=== PATIENT | female | born 1940 | race Caucasian/White ===

== ENCOUNTER 2019-05-13 08:53 | Outpatient (CLI) | payer OTHER, SELFPAY ==
--- NOTE | 2019-05-13 | ECG_ITS ---
Measurements Intervals [place] Rate: 56 P: 53 KS: 156 QRS: 44 QRSD: 88 T: 69 QT: 397 QTc: 384 Interpretive Statements SINUS BRADYCARDIA BORDERLINE ECG Electronically Signed On 05-13-2019 10:28:57 PROGRAM MANAGER by Amanuel Qureshi D.O.
[2019-05-13 10:38] LABS: Blood Urea Nitrogen 14 mg/dL (7-17); Calcium 9.9 mg/dL (8.4-10.2); Carbon Dioxide 28 mmol/L (22-30); Chloride 100 mmol/L (98-107); Estimated Glomerular Filt Rate > 60; Glucose 74 mg/dL (65-105); Potassium 3.9 mmol/L (3.4-5.0); Sodium 138 mmol/L (137-145)
== END 2019-05-13 08:54 | disposition home or self-care (01) ==
PROVIDERS: PCP Internal Medicine; Visit Provider Surgery Plastic and Reconstructive Surgery
DX: I10 Essential (primary) hypertension (principal); R94.31 Abnormal electrocardiogram [ECG] [EKG]
CPT/HCPCS: 36415; 80048; 93005

== ENCOUNTER 2019-10-23 13:46 | Outpatient (CLI) | payer OTHER, SELFPAY ==
--- NOTE | 2019-10-23 15:00 | NEURO_ITS ---
Patient Number: [id number] Impression: # Complains of right hand pain and numbness. # Mild Carpal Tunnel Syndrome, motor more than sensory. # Needle/EMG exam neurogenic in left APB. # Clinical correlation recommended. Nerve Conduction Studies Anti Sensory Summary Table Stim Site NR Peak (ms) P-T Amp (?V) Site1 Site2 Delta-P (ms) Dist (cm) Omid (m/s) Right Median Anti Sensory (2-3nd Digit) Wrist 4.2 10.5 Wrist 2-3nd Digit 4.2 14.0 33 Wrist 4.8 23.1 Wrist 2-3nd Digit 4.2 14.0 33 Right Radial Anti Sensory (Base 1st Digit) Wrist 2.4 22.2 Wrist Base 1st Digit 2.4 0.0 Right Ulnar Anti Sensory (5th Digit) Wrist 2.9 37.6 Wrist 5th Digit 2.9 14.0 48 Motor Summary Table Stim Site NR Onset (ms) O-P Amp (mV) Site1 Site2 Delta-0 (ms) Dist (cm) Omid (m/s) Right Median Motor (Abd Poll Brev) Wrist 3.3 3.3 Elbow Wrist 4.4 26.0 59 Elbow 7.7 3.2 Right Ulnar Motor (Abd Dig Minimi) Wrist 2.2 5.7 A Elbow Wrist 4.1 25.0 61 A Elbow 6.3 5.0 F Wave Studies NR F-Lat (ms) L-R F-Lat (ms) Right Median (Mrkrs) (Abd Poll Brev) 24.43 Right Ulnar (Mrkrs) (Abd Dig Min) 24.30 EMG Side Muscle Nerve Root Ins Act Fibs Amp Dur Recrt Comment Right 1stDorInt Ulnar C8-T1 Nml Nml Nml Nml Nml Right Ext Indicis Radial (Post Int) C7-8 Nml Nml Nml Nml Nml Right Ext Digitorum Radial (Post Int) C7-8 Nml Nml Nml Nml Nml Right BrachioRad Radial C5-6 Nml Nml Nml Nml Nml Right PronatorTeres Median C6-7 Nml Nml Nml Nml Nml Right Abd Poll Brev Median C8-T1 Nml Nml Decr >12ms Reduced Right ABD Dig Min Ulnar C8-T1 Nml Nml Nml Nml Nml MTDD
== END 2019-10-23 13:47 | disposition home or self-care (01) ==
LOC: ANHNEURO 13:48
PROVIDERS: PCP Internal Medicine; Visit Provider Surgery Plastic and Reconstructive Surgery
DX: R20.0 Anesthesia of skin (principal); G56.01 Carpal tunnel syndrome, right upper limb
CPT/HCPCS: 95886; 95909

== ENCOUNTER 2020-01-13 02:14 | Outpatient (CLI) | payer OTHER, SELFPAY ==
[2020-01-13 18:16] LABS: SARS-CoV-2 RNA PCR Negative
== END 2020-01-13 02:15 | disposition home or self-care (01) ==
LOC: ANHCOVIDDT 02:14
PROVIDERS: PCP Internal Medicine; Visit Provider Surgery Plastic and Reconstructive Surgery
DX: Z01.812 Encounter for preprocedural laboratory examination (principal); Z20.828 Contact with and (suspected) exposure to other viral communicable diseases
CPT/HCPCS: 87635; C9803; U0003

== ENCOUNTER 2020-01-15 00:31 | Day surgery (SDC) | payer OTHER, SELFPAY ==
[2020-01-07 14:39] VITALS: BMI 27.2
[2020-01-15] MEDS: LACTATED RINGERS 1,000 ML 30 ML IV CONT (08:04)
--- NOTE | 2020-01-15 08:06 | WPDANESEPPF ---
Anes - Initial Pre Proc Eval Procedure: Operation Date: 01/15/20 09:00 Proposed Procedures p Right Open Carpal Tunnel Release - Adebayo Mclaughlin MD Date/Time: 01/15/20 08:06 Surgeon: Adebayo Mclaughlin MD Pre Op Diagnosis: Right Carpal Tunnel Syndrome Patient Data Age: 79 Gender: F Height: 5 ft 1 in Weight: 65.4 kg Allergies Allergy/AdvReac Type Severity Reaction Status Date / Time Sulfa (Sulfonamide Allergy Severe HIVE, Verified 01/07/20 14:14 Antibiotics) THROAT TIGHTENING rosuvastatin [From Crestor] AdvReac Intermediate Joint Pain Verified 01/07/20 14:57 Home Medications Medication Instructions Recorded Confirmed Type alendronate 70 mg tablet 70 mg PO WEEKLY 03/31/19 01/07/20 History levothyroxine 50 mcg tablet See Rx Instructions .ROUTE 09/29/19 01/07/20 Rx .COMPLEX #45 tablet levothyroxine 75 mcg tablet 75 mcg PO .COMPLEX #45 tablet 09/29/19 01/07/20 Rx hydrocodone 5 mg-acetaminophen 325 1 tablet PO Q6H PRN #15 tablet 01/05/20 01/07/20 Rx mg tablet ondansetron HCl 4 mg tablet 4 mg PO Q6H PRN #30 tablet 01/05/20 01/07/20 Rx ascorbic acid (vitamin C) [Vitamin 500 mg PO DAILY 01/07/20 01/07/20 History C] carvedilol 12.5 mg PO BID 01/07/20 01/07/20 History cholecalciferol (vitamin D3) 125 mcg PO DAILY 01/07/20 01/07/20 History [Vitamin D3] cyanocobalamin (vitamin B-12) 2,500 mcg SUBLINGUAL DAILY 01/07/20 01/07/20 History [Vitamin B-12] fluticasone propionate 2 spray NASAL HS 01/07/20 01/07/20 History garlic 1,000 mg PO DAILY 01/07/20 01/07/20 History uhnayodg-sdv-cykd-FA-lutein 1 tablet PO DAILY 01/07/20 01/07/20 History [Multivitamin Women 50 Plus] omeprazole 20 mg PO QAM 01/07/20 01/07/20 History simvastatin 20 mg PO HS 01/07/20 01/07/20 History vitamin E 400 unit PO DAILY 01/07/20 01/07/20 History Patient hx anesthesia problems: none Family hx anesthesia problems: none PMFSH Surgical History Surgical History History of appendectomy 1960 History of hysterectomy 1973 Hx of removal of ovary 1960 Family History Family History Sibling Family history of malignant neoplasm of breast in first degree relative Family history of lupus erythematosus Family history of gastrointestinal disorder Mother Family history of Alzheimer's disease Patient's mother is Father Patient's father is Other Diabetes mellitus Social History Social History (Updated 01/15/20 @ 08:06 by Jasper Schuler MD) Smoking packs per day: 1 Smoking cigarettes per day: 20.0 Years smoked: 2 Smoking pack-years: 2.00 Smoking status: Former smoker Smoking end date: 04/09/1967 Alcohol intake: never Substance use: never Living arrangements: with family Anes - Eval Final PreProcedure Day of Procedure 01/15/20 08:06 Patient weight: overweight Heart: regular rate and rhythm Lungs: clear to auscultation Airway: Mallampati scale class II Neurological: alert and oriented Last oral intake: >/= 8 hours ASA classification: II Emergent: no Anesthetic plan: proceed Anesthesia type and monitoring: general GIVS and standard monitoring Informed Consent: The patient's anesthetic plan and its attendant risks and benefits were discussed with the patient/family/POA. Questions were solicited and answers provided to the satisfaction of the patient/family/POA.
[2020-01-15 08:18] VITALS: BP 166/74; PULSE 63; RESP 20; TEMP 36.9; O2SAT 99
--- NOTE | 2020-01-15 08:57 | PM.PROC ---
Procedure Note - Detailed Date of procedure: 01/15/20 Pre-op diagnosis: Right Carpal Tunnel Syndrome Post-op diagnosis: same Procedure performed: Right open carpal tunnel release Description of procedure: Patient was marked in the preoperative holding area with their verification. Taken to the operating room placed supine on operating room table. Anesthesia provided by anesthesiology and prepped and draped in standard sterile fashion. Surgical time-out was taken. 1% lidocaine and 0.25% Marcaine with epinephrine was used anesthetize locally. Esmarch was used to exsanguinate the arm and tourniquet inflated to 250 mmHg. Fifteen blade used to make an incision just ulnar to the palmaris longus tendon location. Dissection was continued down until the transverse carpal ligament was identified and this was completely released under direct visualization with no evidence of neurovascular or tendon injury. I closed with horizontal mattress 4-0 nylon. Xeroform fluffs and a lightly applied Saravanan were used for final dressing. Anesthesia: MAC Surgeon: Adebayo Mclaughlin MD Estimated blood loss (mL): 1 Drains: No Packing: No Pathology: none sent Complications: No immediate complications Condition: stable Disposition: PACU Findings: No evidence of neurovascular or tendon injury. Transverse carpal ligament completely released under direct visualization.
--- NOTE | 2020-01-15 09:05 | WPDHPUPDATE1 ---
History and Physical Update Update Date/Time: 01/15/20 09:05 History and Physical has been reviewed, including an updated exam of the patient. There are NO changes in the patient's condition. Risks, benefits, and alternatives have been discussed and questions answered. Patient agrees to proceed with procedure.
[2020-01-15] MEDS: ceFAZolin 2 GM/D5W 50 ML 2 GM/50 ML BAG IVPB (09:09)
[2020-01-15] MEDS: LIDO 1%/EPINEPHRINE 1:100,000 20 ML VIAL 10 ML INFILTRATE (09:25)
[2020-01-15 09:45] VITALS: BP 125/68; PULSE 66; RESP 20; O2SAT 93
[2020-01-15 10:05] VITALS: BP 124/74; PULSE 56; RESP 20
== END 2020-01-15 10:44 | disposition home or self-care (01) ==
PROVIDERS: PCP Internal Medicine; Visit Provider Surgery Plastic and Reconstructive Surgery
PROC: (CPT 64721; principal; 2020-01-15 09:00)
DX: G56.01 Carpal tunnel syndrome, right upper limb (principal); Z87.891 Personal history of nicotine dependence
CPT/HCPCS: 64721; J0690; J1100; J2405; J2704; J3010; J7120

== ENCOUNTER → 2020-04-05 11:08 | Outpatient (CLI) | payer OTHER, SELFPAY ==
--- NOTE | ~2020-04-05 | DEXA_ITS ---
Bone Density Report Name: Breanna Franco Age: 79 Sex: Female Ethnicity: White Date of : 1940 Indication: osteopenia; monitoring treatment; height loss; prior fracture; hysterectomy; postmenopausal Referring Provider: SUGAR HOLM D.O. Study: Bone densitometry was performed. Exam Date: April 05, 2020 Accession number: [id number] Bone Density: Region BMD T-score Z-score Classification AP Spine (L3, L4) 1.122 0.2 2.9 Normal Femoral Neck (Left) 0.751 -0.9 1.3 Normal Total Hip (Left) 0.913 -0.2 1.7 Normal Femoral Neck (Right) 0.661 -1.7 0.5 Osteopenia Total Hip (Right) 0.845 -0.8 1.1 Normal Total Hip Mean 0.879 -0.5 1.4 Normal World Health Organization criteria for BMD impression classify patients as: Normal (T-score at or above -1.0), Osteopenia (T-score between -1.0 and -2.5), or Osteoporosis (T-score at or below -2.5). 10-year Fracture Risk: FRAX not reported because: Treated for osteoporosis Previous Exams: Region Exam Age BMD T-score BMD Change BMD Change Date g/cm2 vs Baseline vs Previous AP Spine(L3, L4) 04/05/2020 79 1.122 0.2 0.077* 0.065* 01/17/2018 77 1.057 -0.4 0.012 0.012 02/22/2015 74 1.045 -0.5 Total Hip(Left) 04/05/2020 79 0.913 -0.2 0.026 0.035* 01/17/2018 77 0.878 -0.5 -0.009 -0.009 02/22/2015 74 0.886 -0.5 Total Hip(Right) 04/05/2020 79 0.845 -0.8 0.000 0.036* 01/17/2018 77 0.809 -1.1 -0.036* -0.036* 02/22/2015 74 0.845 -0.8 *Denotes significance at 95% confidence level, LSC for AP Spine = 0.022 g/cm2, LSC for Total Hip = 0.027 g/cm2 Clinical Information Provided by Patient: Has had a low trauma fracture Is being treated for osteoporosis Has used the following medications: Fosamax (i.e. alendronate), Vitamin D, Calcium, MTV Has the following medical conditions: Hysterectomy, thyroid condition/hypo? Patient maximum height was 61 Menopause Age: 32 No regular weight bearing exercise Does not regularly consume dairy products Drinks caffeinated beverages Onset of menses at age 14 Number of children 3 Impression: The patient has low bone mass, based on the Right Femoral Neck T-score. The patient has risk factors, including: previous fracture. No significant bone loss was observed. Discussion: PATIENT UNDER TREATMENT WITH NO SIGNIFICANT BMD LOSS SINCE LAST EXAM. In an untre
--- NOTE | ~2020-04-05 | MM_ITS ---
EXAMINATION: MM screening lucia BI w erica HISTORY: Screening TECHNIQUE: Craniocaudal and mediolateral oblique 3-D tomosynthesis images were obtained and synthetic 2-D images were generated. CAD analysis was submitted and interpreted. COMPARISON: Comparison to multiple prior studies sequentially, with oldest reviewed study dated 02/07. BREAST PARENCHYMAL COMPOSITION: There are scattered areas of fibroglandular density. FINDINGS: There is no evidence of suspicious mass, calcification, or architectural distortion to sugg est malignancy in either breast. There has been no suspicious interval change. IMPRESSION: 1. No mammographic evidence of malignancy. 2. Recommend routine screening mammography in one year. BI-RADS Category 1: Negative Reviewed, dictated and finalized at location A. NG TACKER
== END ==
PROVIDERS: PCP Internal Medicine; Visit Provider Internal Medicine
DX: Z12.31 Encounter for screening mammogram for malignant neoplasm of breast (principal); Z78.0 Asymptomatic menopausal state; M16.11 Unilateral primary osteoarthritis, right hip
CPT/HCPCS: 77063; 77067; 77080

== ENCOUNTER 2021-02-08 00:52 | Observation (INO) | payer OTHER, SELFPAY ==
[2021-02-08] VITALS (20 sets, daily range): BP systolic 119–172; BP diastolic 58–94; PULSE 57–89; RESP 13–21; TEMP 36.1–37.2; O2SAT 94–100; BMI 24.4
--- NOTE | ~2021-02-08 | CT_ITS ---
EXAMINATION: CT abdomen pelvis w con INDICATION: Right upper quadrant pain TECHNIQUE: Computed tomographic images of the abdomen and pelvis were obtained after the administrati on of 100 cc of Omnipaque 350 intravenous contrast. The dose-length product (DLP) was 577.60 mGy-cm. Automated exposure control and iterative reconstruction technique were employed. COMPARISON: 02/19/2017 FINDINGS: Minimal dependent atelectasis is present in the lung bases. The heart size is normal. There is a 10 mm cyst in the left hepatic lobe. The spleen, pancreas, and adrenal glands are normal. The g allbladder is distended. There is mild wall thickening of the gallbladder. There are questionable sma ll filling defects in the distal common bile duct. There is no intrahepatic or extrahepatic biliary d ilatation. Cysts of the kidneys measure up to 1.4 cm on the left. No pathologically enlarged abdomina l or pelvic lymph nodes are identified. There is no free intraperitoneal gas or evidence of bowel obs truction. Colonic diverticulosis is present without evidence of diverticulitis. There is severe lumba r spondylosis. IMPRESSION: 1. CT findings consistent with acute cholecystitis. 2. Possible choledocholithiasis. Reviewed, dictated and finalized at location B.
--- NOTE | ~2021-02-08 | US_ITS ---
EXAMINATION: US abdomen limited DATE: 02/08/2021 07:54 INDICATION: Right upper quadrant pain, cholecystitis TECHNIQUE: Multiple grayscale and Doppler ultrasound images of the abdomen were obtained. COMPARISON: CT from today FINDINGS: Bowel gas obscures visualization of the pancreas. The visualized portions of the pancreas a re unremarkable. The liver is normal with normal echogenicity and echotexture. No surface nodularity. Normal hepatopetal flow in the main portal vein. The gallbladder is distended. There is thickening o f the gallbladder wall. A phrygian cap is noted in the gallbladder. There is an echogenic focus of th e gallbladder which could reflect a mobile stone or polyp The normal common bile duct measures 4 mm. There was no sonographic Pereira sign although sensitivity is limited by pain medication. IMPRESSION: 1. Gallbladder distention with gallbladder wall thickening and stone versus polyp in the gallbladder. Findings are suggestive of cholecystitis. Reviewed, dictated and finalized at location B. IMPRESSION: 1. Gallbladder distention with gallbladder wall thickening and stone versus lexis yp in the gallbladder. Findings are suggestive of cholecystitis.
--- NOTE | ~2021-02-08 | XR_ITS ---
EXAMINATION: XR chest 2V DATE: 02/08/2021 01:19 INDICATION: Chest pain TECHNIQUE: PA and lateral views of the chest were obtained. COMPARISON: Chest radiograph dated 06/22/2015 FINDINGS: The lungs remain clear with no focal airspace opacities, pulmonary edema, pleural effusion or pneumot horax. The cardiomediastinal silhouette is normal. IMPRESSION: 1. No acute cardiopulmonary disease. Reviewed, dictated and finalized at location A.
--- NOTE | 2021-02-08 01:06 | ECG_ITS ---
Measurements Intervals [place] Rate: 64 P: 29 MT: 170 QRS: 6 QRSD: 86 T: 52 QT: 376 QTc: 390 Interpretive Statements SINUS RHYTHM BORDERLINE ST-T WAVE ABNORMALITY- ANTEROLAT/HIGH LAT LEADS BASELINE ARTIFACT- AVR, AVL, AVF, V3, V5 BORDERLINE ECG Electronically Signed On 02-08-2021 6:16:49 CDT by Amanuel Qureshi D.O.
[2021-02-08 01:16] LABS: Basophils Percent Auto 0.5 % (0.2-1.2); Eosinophils Absolute Auto 0.2 K/mm3 (0-0.3); Eosinophils Percent Auto 1.9 % (0-4.4); Hematocrit 39.4 % (37.0-47.0); Hemoglobin 13.1 g/dL (12.0-15.0); Immature Granulocyte Absolute 0.03 K/mm3 (0.00-0.031); Immature Granulocyte Percent A 0.4 % (0-0.5); Lymphocytes Absolute Auto 1.84 K/mm3 (0.9-3.2); Lymphocytes Percent Auto 21.7 % (18.3-44.2); Mean Corpuscular HGB Conc 33.2 g/dl (32-36); Mean Corpuscular Hemoglobin 31.2 pg (26-34); Mean Corpuscular Volume 93.8 fl (80-100); Mean Platelet Volume 9.8 fl (7.4-10.4); Monocytes Absolute Auto 0.8 K/mm3 (0.1-0.6); Monocytes Percent Auto 9.2 % (2.6-8.5); Neutrophils Absolute Auto 5.6 K/mm3 (1.3-6.7); Neutrophils Percent Auto 66.3 % (45.5-73.1); Platelet Count Result 312 k/mm3 (150-375); Red Cell Distribution Width 12.6 % (11.5-14.5); White Blood Count 8.5 K/mm3 (4.5-10.0)
[2021-02-08 01:25] LABS: INR 0.9; Prothrombin Time 12.2 Seconds (11.1-14.7)
[2021-02-08 01:26] LABS: Partial Thromboplastin Time 30.5 SECONDS (22.3-36.8)
[2021-02-08 01:28] LABS: Anion Gap 9 mmol/L (8-16); Blood Urea Nitrogen 13 mg/dL (7-17); Calcium 10.4 mg/dL (8.4-10.2); Carbon Dioxide 27 mmol/L (22-30); Chloride 103 mmol/L (98-107); Estimated CRCL calculation 41 ml/min; Estimated Glomerular Filt Rate > 60; Glucose 118 mg/dL (65-110); Potassium 3.8 mmol/L (3.4-5.0); Sodium 139 mmol/L (137-145)
[2021-02-08 01:40] LABS: Troponin I < 0.012 ng/mL (0.000-0.034)
[2021-02-08] MEDS: ASPIRIN 81 MG CHEWABLE TABLET 324 MG PO (01:58)
--- NOTE | 2021-02-08 02:43 | ED.CHESTPAIN ---
HPI - Chest Pain General Chief Complaint: Chest Pain Stated Complaint: chest pain Time Seen by Provider: 02/08/21 01:11 Source: patient Mode of arrival: ambulatory Limitations: no limitations History of Present Illness HPI narrative: 80-year-old female with history of hypertension, high cholesterol and hypothyroidism arrives complaining of chest pain constant for 6 hours. Chest pain is located under the right rib cage radiating to the mid epigastrium and mid sternum. Worse with a deep breath, worse with laying flat. No fever, does have nausea. Patient states she has had pain like this before but it went away but this time it has not. Patient states she still does have her gallbladder no hematemesis, no lower abdominal pain, no diarrhea, no constipation. No recent changes in medications. Patient is not on blood thinners and has no history of CAD. Related Data Home Medications Medication Instructions Recorded Confirmed Multivitamin Women 50 Plus 1 tablet PO DAILY 01/07/20 02/08/21 ascorbic acid (vitamin C) [Vitamin 500 mg PO DAILY 01/07/20 02/08/21 C] cholecalciferol (vitamin D3) 125 mcg PO DAILY 01/07/20 02/08/21 [Vitamin D3] cyanocobalamin (vitamin B-12) 2,500 mcg SUBLINGUAL DAILY 01/07/20 02/08/21 [Vitamin B-12] vitamin E 400 unit PO DAILY 01/07/20 02/08/21 zinc 50 mg tablet 50 mg PO DAILY 05/17/20 02/08/21 carvedilol 12.5 mg PO BID 02/08/21 02/08/21 levothyroxine 50 mcg PO DAILY 02/08/21 02/08/21 levothyroxine 75 mcg PO DAILY 02/08/21 02/08/21 simvastatin 20 mg PO DAILY 02/08/21 02/08/21 Allergies Allergy/AdvReac Type Severity Reaction Status Date / Time Sulfa (Sulfonamide Allergy Severe HIVE, Verified 02/08/21 06:12 Antibiotics) THROAT TIGHTENING rosuvastatin [From Crestor] AdvReac Intermediate Joint Pain Verified 02/08/21 06:12 Review of Systems Review of Systems: CONSTITUTIONAL: no fever, no weight loss, no confusion EYES: no vision changes, no eye pain ENT: no rhinorrhea, no sore throat, no difficulty swallowing CARDIOVASCULAR: positive for chest pain, no leg edema, no palpitations RESPIRATORY: no cough, no shortness of breath, no hemoptysis GASTROINTESTINAL: positive for abdominal pain, positive for nausea, positive for vomiting, no diarrhea GENITOURINARY: no flank pain, no dysuria, no hematuria SKIN: no rash, no jaundice MUSCULOSKELETAL: no back pain, no trauma. NEUROLOGIC: No headache, no dizziness, no focal weakness PSYCHIATRIC: No hallucinations, no suicidal ideation [facility] Past Medical History Medical History (Updated 02/09/21 @ 13:06 by Pavel Velarde DO) Hypercholesteremia Hypertension Surgical History Surgical History History of appendectomy 1960 History of hysterectomy 1972 Hx of removal of ovary 1960 Family History Family History Sibling Family history of malignant neoplasm of breast in first degree relative Family history of lupus erythematosus Family history of gastrointestinal disorder Hypertension Mother Family history of Alzheimer's disease Patient's mother is Hypertension Father Patient's father is Alcoholism Other Diabetes mellitus Social History Social History Smoking packs per day: 1 Smoking cigarettes per day: 20.0 Years smoked: 2 Smoking pack-years: 2.00 Smoking status: Former smoker Tobacco type: cigarettes Second hand tobacco smoke exposure: No Alcohol intake: never Substance use: never Substance use type: does not use Spiritual care concerns: No Exam Narrative: General: alert, afebrile, answering all questions appropriately Head: normocephalic, atraumatic Eyes: EOMI bilaterally, anicteric, no injection ENT: moist mucous membranes, oropharynx patent, no rhinorrhea Neck: supple, trachea midli
--- NOTE | 2021-02-08 03:04 | PC.NURSE ---
Called lab to add on Lip
[2021-02-08 03:12] LABS: Lipase 241 U/L (23-300)
[2021-02-08] MEDS: ONDANSETRON INJ 4 MG/2 ML VIAL IV PUSH ×2 (03:20→12:06)
[2021-02-08] MEDS: KETOROLAC 15 MG/ML VIAL (*BKC) IV PUSH (03:22)
[2021-02-08 04:24] LABS: Alanine Aminotransferase 18 U/L (4-35); Albumin Level 4.8 g/dL (3.5-5.1); Alkaline Phosphatase 81 U/L (38-126); Aspartate Amino Transferase 32 U/L (14-36); Bilirubin,Total 0.6 mg/dL (0.2-1.3)
[2021-02-08] MEDS: AMPICILLIN SULB 3 GM/NS 100 ML 3 GM/100 ML VIAL IVPB ×4 (05:11→22:50)
--- NOTE | 2021-02-08 05:55 | ADMGEN ---
This patient, Breanna Franco, was admitted to Medical Room 343-01. Patient/family oriented to hospital policies and general routines including ID bracelet, bed and alarms, visiting hours, pain management, procedures, bathroom and other care routines, personal items, smoking policy, room service/diet, and visiting hours. Information on how to activate the Rapid Response Team has been discussed. Patient/Family are encouraged to report perceived risks to care and to ask questions if they do not understand what they are told or what they should do.
--- NOTE | 2021-02-08 11:48 | PM.IMHP ---
H&P: HPI History of Present Illness Date/Time: 02/08/21 11:48 Chief Complaint: Epigastric pain Narrative: this is a 80-year-old woman who presented to the emergency department this morning with epigastric pain. She states that she began having pain yesterday evening. She ate salmon and a broccoli salad for lunch. She has never had symptoms like this in the past. She does get occasional acid reflux, but the symptoms appear to be different. She denies any fevers or chills. She denies any vomiting but she has had some nausea. She denies any change in bowel habits. Review of Systems Review of Systems: All systems reviewed & are unremarkable except as noted in HPI and below Constitutional: Constitutional: Denies chills and Denies fever(s) Eyes: Eyes: Denies change in vision ENT: Denies hearing loss, Denies neck pain and Denies sore throat Cardiovascular: Cardiovascular: Denies chest pain and Denies dyspnea Respiratory: Respiratory: Denies cough, Denies dyspnea and Denies wheezing Gastrointestinal: Gastrointestinal: Reports as per HPI Genitourinary: Genitourinary: Denies hematuria and Denies dysuria Musculoskeletal: Musculoskeletal: Denies arthralgias, Denies joint swelling and Denies neck pain Allergic/Immunologic: Allergic/Immunologic: Denies wheezing [facility] Past Medical History Medical History (Updated 02/08/21 @ 11:51 by Pavel Velarde DO) Hypercholesteremia Hypertension Surgical History Surgical History History of appendectomy 1960 History of hysterectomy 1972 Hx of removal of ovary 1960 Family History Family History Sibling Family history of malignant neoplasm of breast in first degree relative Family history of lupus erythematosus Family history of gastrointestinal disorder Hypertension Mother Family history of Alzheimer's disease Patient's mother is Hypertension Father Patient's father is Alcoholism Other Diabetes mellitus Social History Social History Smoking packs per day: 1 Smoking cigarettes per day: 20.0 Years smoked: 2 Smoking pack-years: 2.00 Smoking status: Former smoker Tobacco type: cigarettes Second hand tobacco smoke exposure: No Alcohol intake: never Substance use: never Substance use type: does not use Living arrangements: with family Occupation/Education: retired Spiritual care concerns: No Meds Home Medications and Allergies Home Medications Medication Instructions Recorded Confirmed Type Multivitamin Women 50 Plus 1 tablet PO DAILY 01/07/20 02/08/21 History ascorbic acid (vitamin C) [Vitamin 500 mg PO DAILY 01/07/20 02/08/21 History C] cholecalciferol (vitamin D3) 125 mcg PO DAILY 01/07/20 02/08/21 History [Vitamin D3] cyanocobalamin (vitamin B-12) 2,500 mcg SUBLINGUAL DAILY 01/07/20 02/08/21 History [Vitamin B-12] vitamin E 400 unit PO DAILY 01/07/20 02/08/21 History zinc 50 mg tablet 50 mg PO DAILY 05/17/20 02/08/21 History omega-3 fatty acids 1,000 mg 1,000 mg PO DAILY #90 cap 06/28/20 02/08/21 Rx capsule omeprazole 20 mg capsule,delayed 20 mg PO BID #180 cap 01/04/21 02/08/21 Rx release fluticasone propionate 50 2 spray NASAL HS PRN #16 g 01/07/21 02/08/21 Rx mcg/actuation nasal spray,suspension carvedilol 12.5 mg PO BID 02/08/21 02/08/21 History levothyroxine 50 mcg PO DAILY 02/08/21 02/08/21 History levothyroxine 75 mcg PO DAILY 02/08/21 02/08/21 History simvastatin 20 mg PO DAILY 02/08/21 02/08/21 History Allergies Allergy/AdvReac Type Severity Reaction Status Date / Time Sulfa (Sulfonamide Allergy Severe HIVE, Verified 02/08/21 06:12 Antibiotics) THROAT TIGHTENING rosuvastatin [From Crestor] AdvReac Intermediate Joint Pain Verified 02/08/21 06:12 Vital Si
[2021-02-08] MEDS: LACTATED RINGERS 1,000 ML 125 ML IV CONT (12:06)
--- NOTE | 2021-02-08 14:53 | PC.NURSE ---
Pt to OR per stretcher. Report given to PIETRO Peraza.
--- NOTE | 2021-02-08 17:02 | WPDANESEPPF ---
Anes - Initial Pre Proc Eval Procedure: Operation Date: 02/08/21 16:15 Proposed Procedures p Laparoscopic Cholecystectomy,Possible Open - Pavel Velarde DO Date/Time: 02/08/21 17:02 Surgeon: Pavel Velarde DO Pre Op Diagnosis: Cholecystitis Patient Data Age: 80 Gender: F Height: 1.65 m Weight: 66.6 kg Last Vital Signs Temp 36.6 C 02/08/21 15:26 Pulse 67 02/08/21 15:26 Resp 17 02/08/21 15:26 BP 137/70 02/08/21 15:26 Pulse Ox 99 02/08/21 15:26 Allergies Allergy/AdvReac Type Severity Reaction Status Date / Time Sulfa (Sulfonamide Allergy Severe HIVE, Verified 02/08/21 06:12 Antibiotics) THROAT TIGHTENING rosuvastatin [From Crestor] AdvReac Intermediate Joint Pain Verified 02/08/21 06:12 Home Medications Medication Instructions Recorded Confirmed Type Multivitamin Women 50 Plus 1 tablet PO DAILY 01/07/20 02/08/21 History ascorbic acid (vitamin C) [Vitamin 500 mg PO DAILY 01/07/20 02/08/21 History C] cholecalciferol (vitamin D3) 125 mcg PO DAILY 01/07/20 02/08/21 History [Vitamin D3] cyanocobalamin (vitamin B-12) 2,500 mcg SUBLINGUAL DAILY 01/07/20 02/08/21 History [Vitamin B-12] vitamin E 400 unit PO DAILY 01/07/20 02/08/21 History zinc 50 mg tablet 50 mg PO DAILY 05/17/20 02/08/21 History omega-3 fatty acids 1,000 mg 1,000 mg PO DAILY #90 cap 06/28/20 02/08/21 Rx capsule omeprazole 20 mg capsule,delayed 20 mg PO BID #180 cap 01/04/21 02/08/21 Rx release fluticasone propionate 50 2 spray NASAL HS PRN #16 g 01/07/21 02/08/21 Rx mcg/actuation nasal spray,suspension carvedilol 12.5 mg PO BID 02/08/21 02/08/21 History levothyroxine 50 mcg PO DAILY 02/08/21 02/08/21 History levothyroxine 75 mcg PO DAILY 02/08/21 02/08/21 History simvastatin 20 mg PO DAILY 02/08/21 02/08/21 History Laboratory Tests 02/08/21 02/08/21 02/08/21 01:09 01:09 01:09 WBC 8.5 K/mm3 K/mm3 (4.5-10.0) RBC 4.20 M/mm3 M/mm3 (4.2-5.4) Hgb 13.1 g/dL g/dL (12.0-15.0) Hct 39.4 % % (37.0-47.0) MCV 93.8 fl fl (80-100) MCH 31.2 pg pg (26-34) MCHC 33.2 g/dl g/dl (32-36) RDW 12.6 % % (11.5-14.5) Plt Count 312 k/mm3 k/mm3 (150-375) MPV 9.8 fl fl (7.4-10.4) Immature Gran % (Auto) 0.4 % % (0-0.5) Neut % (Auto) 66.3 % % (45.5-73.1) Lymph % (Auto) 21.7 % % (18.3-44.2) [place] % (Auto) 9.2 % H % (2.6-8.5) Eos % (Auto) 1.9 % % (0-4.4) Baso % (Auto) 0.5 % % (0.2-1.2) Lymph # (Auto) 1.84 K/mm3 K/mm3 (0.9-3.2) [place] # (Auto) 0.8 K/mm3 H K/mm3 (0.1-0.6) Eos # (Auto) 0.2 K/mm3 K/mm3 (0-0.3) Baso # (Auto) 0.0 K/mm3 K/mm3 (0.0-0.1) Abs Immat Gran (auto) 0.03 K/mm3 K/mm3 (0.00-0.031) Absolute Neuts (auto) 5.6 K/mm3 K/mm3 (1.3-6.7) Absolute Nucleated RBC 0.0 K/mm3 K/mm3 (0.0-0.012) Nucleated RBC % 0.0 % % (0.0-0.2) PT 12.2 Seconds Seconds (11.1-14.7) INR 0.9 APTT 30.5 SECONDS SECONDS (22.3-36.8) Sodium 139 mmol/L mmol/L (137-145) Potassium 3.8 mmol/L mmol/L (3.4-5.0) Chloride 103 mmol/L mmol/L (98-107) Carbon Dioxide 27 mmol/L mmol/L (22-30) Anion Gap 9 mmol/L mmol/L (8-16) BUN 13 mg/dL mg/dL (7-17) Creatinine 0.90 mg/dL mg/dL (0.7-1.0) Estim Creat Clear Calc 41 ml/min ml/min Estimated GFR > 60 (59 - ) Glucose 118 mg/dL H mg/dL (65-110) Calcium 10.4 mg/dL H mg/dL (8.4-10.2) Total Bilirubin Direct Bilirubin AST ALT Alkaline Phosphatase Troponin I < 0.012 ng/mL ng/mL (0.000-0.034) Total Protein Albumin Lipase Blood Type Antibody Scree
--- NOTE | 2021-02-08 17:17 | WPDHPUPDATE1 ---
History and Physical Update Update Date/Time: 02/08/21 17:17 History and Physical has been reviewed, including an updated exam of the patient. There are NO changes in the patient's condition. Risks, benefits, and alternatives have been discussed and questions answered. Patient agrees to proceed with procedure.
--- NOTE | 2021-02-08 18:15 | W.PM.PROC2 ---
Procedure Note - Detailed Date of Procedure 02/08/21 Pre-op Diagnosis Cholecystitis Post-op Diagnosis same Procedure Performed Laparoscopic cholecystectomy Surgeon Pavel Velarde, DO Anesthesia general and local (0.5% bupivacaine) Indications This is a 80-year-old woman who presented to the emergency department this morning with epigastric and right upper quadrant pain. She began experiencing pain yesterday and this has been constant ever since. A CT in the emergency department showed evidence of gallbladder wall thickening and gallbladder distention. Her white blood count was normal on liver enzymes were normal. Discussions were made with the patient about treatment options and decision was made to proceed with laparoscopic cholecystectomy, possible open. Findings Laparoscopic cholecystectomy was performed. There were a few pericholecystic adhesions around the body of the gallbladder and the gallbladder wall appeared chronically thickened. There was no evidence of gangrene and the cystic duct appeared normal in size. The gallbladder was removed and sent to the lab for pathology. Description of Procedure Procedure as well as risks, benefits, and alternatives were discussed with patient. Written consent was obtained and placed in chart prior to procedure. The patient was brought back to surgical suite. Patient was placed in supine position on operating table. Time-out was done to confirm patient and procedure. Patient was then intubated by the anesthesia department. Abdomen was prepped and draped in sterile fashion using chlorhexidine prep. 0.5% bupivacaine with epinephrine was infiltrated at each site of incision. An 11 millimeter vertical incision was made at the inferior portion of the umbilicus using a 15 blade scalpel. Blunt dissection was carried down to the linea alba. The linea alba was then incised using a 15 blade scalpel. The peritoneum was then bluntly entered. An 11 millimeter trocar was inserted and carbon dioxide insufflation was used to create a pneumoperitoneum. The camera was inserted and the abdomen was inspected. The patient was placed in reverse Trendelenberg position and rotated slightly to the left. A 5 millimeter incision was made in the epigastric region, and a 5 millimeter trocar was inserted under direct visualization. Two 5 millimeter incisions were made in the right upper quadrant, and two 5 millimeter trocars were inserted under direct visualization. The gallbladder was identified and grasped at the fundus and retracted superiorly. It was then grasped at the infundibulum retracted laterally. Careful dissection around the neck of the gallbladder was performed using blunt dissection with a [place] grasper and hook electrocautery. The cystic duct was identified, and a window was created behind it. The cystic artery was also identified and a window was created behind it. The critical view of safety was identified, visualizing the cystic duct running directly into the neck of the gallbladder, and the cystic artery running directly into the wall of the gallbladder. A 5 millimeter clip meat processing center manager was then used to place 2 clips proximally and 1 clip distally on both the cystic duct and cystic artery. They were then both transected using endoscopic scissors. Once safely away from the arianna hepatitis, the gallbladder was dissected free from the liver bed using hook electrocautery. Hemostasis was achieved along the way. The gallbladder was removed completely and then removed through the umbilical port. The liver bed was then inspected. Hemostasis appeared adequate, and our clips appeared secure. The area was gently irrigated with sterile saline. No other abnormalities were seen. The patient was flattened out in bed, and 1 final inspection was made around the abdominal cavity. The ports were then removed under direct visualization, the camera was removed, and the pneumoperitoneum was released. The fascia of the umbili
[2021-02-08] MEDS: LACTATED RINGERS 1,000 ML 30 ML IV CONT (18:16)
--- NOTE | 2021-02-08 19:45 | PC.NURSE ---
Patient returned to room from PACU via stretcher.
[2021-02-08] MEDS: carvediloL 12.5 MG TABLET PO (20:13)
[2021-02-08] MEDS: LACTATED RINGERS 1,000 ML 100 ML IV CONT (20:14)
[2021-02-09] MEDS: HYDROcodone/acetaminophen (*CRX) 5-325 MG TABLET 1 TAB PO (01:06)
[2021-02-09 01:27] VITALS: BP 112/67; PULSE 88; RESP 16; TEMP 37.1; O2SAT 94
[2021-02-09 05:14] LABS: Hematocrit 32.1 % (37.0-47.0); Hemoglobin 10.5 g/dL (12.0-15.0); Mean Corpuscular HGB Conc 32.7 g/dl (32-36); Mean Corpuscular Hemoglobin 31.3 pg (26-34); Mean Corpuscular Volume 95.8 fl (80-100); Mean Platelet Volume 9.6 fl (7.4-10.4); Platelet Count Result 230 k/mm3 (150-375); Red Blood Count 3.35 M/mm3 (4.2-5.4); Red Cell Distribution Width 12.6 % (11.5-14.5); White Blood Count 6.4 K/mm3 (4.5-10.0)
[2021-02-09] MEDS: LEVOTHYROXINE SODIUM 50 MCG TABLET PO (05:23)
[2021-02-09] MEDS: AMPICILLIN SULB 3 GM/NS 100 ML 3 GM/100 ML VIAL IVPB ×2 (05:23→11:24)
[2021-02-09 05:27] VITALS: BP 116/63; PULSE 78; RESP 18; TEMP 36.6; O2SAT 96
[2021-02-09] MEDS: HYDROcodone/acetaminophen (*CRX) 7.5-325 MG TABLET 1 TAB PO (05:28)
[2021-02-09 05:31] LABS: Anion Gap 7 mmol/L (8-16); Blood Urea Nitrogen 11 mg/dL (7-17); Calcium 8.3 mg/dL (8.4-10.2); Carbon Dioxide 23 mmol/L (22-30); Chloride 105 mmol/L (98-107); Estimated CRCL calculation 45 ml/min; Estimated Glomerular Filt Rate > 60; Glucose 76 mg/dL (65-110); Potassium 3.9 mmol/L (3.4-5.0); Sodium 135 mmol/L (137-145)
[2021-02-09] MEDS: carvediloL 12.5 MG TABLET PO (08:40)
--- NOTE | 2021-02-09 09:25 | WPDANESPN ---
Anes - Prog Note Post-Op Date/Time: 02/09/21 09:25 Cardiovascular status: normal Respiratory status: normal Airway patency: baseline Mental status: baseline Post-Op hydration status: normal Vital Signs: Last Vital Signs Temp 36.6 C 02/09/21 05:27 Pulse 78 02/09/21 05:27 Resp 18 02/09/21 05:27 BP 116/63 02/09/21 05:27 Pulse Ox 96 02/09/21 05:27 Pain Score (VAS): 0 I/O: Intake & Output 02/08/21 02/09/21 02/09/21 23:59 07:59 15:59 Intake Total 300 750 240 Output Total 0 900 Balance 300 -150 240 Laboratory Tests 02/09/21 05:00 02/09/21 05:00 02/08/21 02/09/21 02/09/21 11:55 05:00 05:00 WBC 6.4 RBC 3.35 L Hgb 10.5 L Hct 32.1 L MCV 95.8 MCH 31.3 MCHC 32.7 RDW 12.6 Plt Count 230 MPV 9.6 Sodium 135 L Potassium 3.9 Chloride 105 Carbon Dioxide 23 Anion Gap 7 L BUN 11 Creatinine 0.80 Estim Creat Clear Calc 45 Estimated GFR > 60 Glucose 76 Calcium 8.3 L Blood Type O Positive Antibody Screen Negative Post-procedural complaints: none Patient Feedback: Patient satisfied with anesthetic care.
[2021-02-09 10:16] VITALS: BP 109/62; PULSE 74; RESP 16; TEMP 36.2; O2SAT 95
--- NOTE | 2021-02-09 13:02 | PM.DS ---
DS: Admitting Diagnosis Discharge Date 02/09/2021 Admitting Diagnosis cholecystitis DS: Discharge Diagnosis Discharge Diagnosis (1) Cholecystitis: Code(s): K81.9 - Cholecystitis, unspecified Status: Acute (2) GERD (gastroesophageal reflux disease): Qualifiers: Esophagitis presence: without esophagitis Qualified Code(s): K21.9 - Gastro-esophageal reflux disease without esophagitis Code(s): K21.9 - Gastro-esophageal reflux disease without esophagitis Status: Acute (3) Hypothyroidism: Qualifiers: Hypothyroidism type: unspecified Qualified Code(s): E03.9 - Hypothyroidism, unspecified Code(s): E03.9 - Hypothyroidism, unspecified Status: Acute (4) Hypertension: Qualifiers: Hypertension type: primary hypertension Qualified Code(s): I10 - Essential (primary) hypertension Code(s): I10 - Essential (primary) hypertension Status: Inactive DS: Summary Hospital Course Reason for hospitalization: acute cholecystitis Hospital Course: this is a 80-year-old woman who presented to the emergency department on 02/08/2021 with complaints of epigastric abdominal pain and nausea. Symptoms began 1 day prior. She had never had symptoms like this in the past. In the emergency department, she was noted to have normal white blood count and liver enzymes, but CT showed evidence of gallbladder distention and gallbladder wall thickening concerning for acute cholecystitis. She was then admitted for further treatment. A gallbladder ultrasound was performed and this also showed evidence of cholecystitis. Discussions were made with the patient about treatment options and decision was made to proceed with laparoscopic cholecystectomy. She underwent laparoscopic cholecystectomy on 02/08/2021. She was then returned to the surgical floor postoperatively for recovery. Her diet and activity were advanced as tolerated. On 02/09/2021 she was tolerating a low-fat diet, she was ambulating in the halls, and her pain was well controlled. She was remaining hemodynamically stable. She was discharged on 02/09/2021. Status at Discharge Functional status at discharge: independent ambulation Overall status at discharge: patient is progressing back to baseline Time Spent with Patient Time attestation: Total time spent providing and/or coordinating discharge services: Time spent: Less than 30 minutes Exam Const: General: cooperative and no acute distress Orientation/consciousness: patient oriented x3 Resp: Effort & Inspection: normal respiratory effort Auscultation: clear to auscultation bilaterally Cardio: Rate: regular rate Rhythm: regular rhythm Heart sounds: S1 normal heart sound present and S2 normal heart sound present GI: Inspection: incision ( Intact with glue) GI Palp: Yes Soft to palpation, Yes Tenderness to palpation present (GI) ( incisional), No Guarding due to palpation present (GI) and No Rebound tenderness present Auscultation: normal bowel sounds DS: Data Data Completed and Pending Pending studies at discharge: Pending at discharge 02/08/21 18:00 Surgical [PTH] Routine Labs on day of discharge: Labs from last 24 hours 02/09/21 02/09/21 02/08/21 05:00 05:00 11:55 WBC 6.4 RBC 3.35 L Hgb 10.5 L Hct 32.1 L MCV 95.8 MCH 31.3 MCHC 32.7 RDW 12.6 Plt Count 230 MPV 9.6 Sodium 135 L Potassium 3.9 Chloride 105 Carbon Dioxide 23 Anion Gap 7 L BUN 11 Creatinine 0.80 Estim Creat Clear Calc 45 Estimated GFR > 60 Glucose 76 Calcium 8.3 L Blood Type O Positive Antibody Screen Negative Imaging Radiologist's impression: ITS Impressions Chest X-Ray 02/08/21 08:00 IMPRESSION: 1. No acute cardiopulmonary disease. Abdomen/Pelvis CT 02/08/21 08:13 IMPRESSION: 1. CT findings consistent with acute cholecystitis. 2. Possible choledocholithiasis. Abdomen
== END 2021-02-09 14:26 | disposition home or self-care (01) ==
LOC: ANHED 05:09 → ANH3MED 05:34
PROVIDERS: Admitting Provider Surgery; Emergency Provider Emergency Medicine; PCP Internal Medicine; Visit Provider Surgery
PROC: 0FT44ZZ Resection of Gallbladder, Percutaneous Endoscopic Approach (ICD-10-PCS; CPT 47562; principal; 2021-02-08 16:15)
DX: K81.1 Chronic cholecystitis (principal); E78.00 Pure hypercholesterolemia, unspecified; E03.9 Hypothyroidism, unspecified; I10 Essential (primary) hypertension; K21.9 Gastro-esophageal reflux disease without esophagitis; Z87.891 Personal history of nicotine dependence
CPT/HCPCS: 47562; 36415; 71046; 74177; 76705; 80048; 80076; 83690; 84484; 85025; 85027; 85610; 85730; 86850; 86900; 86901; 88304; 93005; 96361; 96365; 96375; 96376; 99285; A9270; G0378; J0295; J0330; J1885; J2270; J2405; J2704; J7030; J7120; Q9967

== ENCOUNTER → 2021-04-07 11:57 | Outpatient (CLI) | payer OTHER, SELFPAY ==
--- NOTE | ~2021-04-07 | MM_ITS ---
EXAMINATION: MM screening [facility] w [facility] HISTORY: Screening TECHNIQUE: Craniocaudal and mediolateral oblique 3-D tomosynthesis images were obtained and synthetic 2-D images were generated. CAD analysis was submitted and interpreted. COMPARISON: Comparison to multiple prior studies sequentially, with oldest reviewed study dated 02/07. BREAST PARENCHYMAL COMPOSITION: FINDINGS: There is no evidence of suspicious mass, calcification, or architectural distortion to sugg est malignancy in either breast. There has been no suspicious interval change. IMPRESSION: 1. No mammographic evidence of malignancy. 2. Recommend routine screening mammography in one year. BI-RADS Category 1: Negative Reviewed, dictated and finalized at location A. MILL ROLLER
== END ==
PROVIDERS: PCP Internal Medicine; Visit Provider Nurse Practitioner
DX: Z12.31 Encounter for screening mammogram for malignant neoplasm of breast (principal)
CPT/HCPCS: 77063; 77067

== ENCOUNTER → 2021-06-10 12:52 | Outpatient (CLI) | payer OTHER, SELFPAY ==
--- NOTE | ~2021-06-10 | XR_ITS ---
XR hip RT min 2V DATE: 06/10/2021 13:35 INDICATION: Right hip pain TECHNIQUE: AP and lateral views COMPARISON: None FINDINGS: No fracture or dislocation. No evidence of avascular necrosis or bone destruction. Right hip joint space is well preserved.. There is mild myositis ossificans at the lateral aspect of the g reater trochanter of the femur. IMPRESSION: Focal myositis ossificans at lateral aspect of greater trochanter Reviewed, dictated and finalized at location A. WINTERIZER
== END ==
PROVIDERS: PCP Internal Medicine; Visit Provider Nurse Practitioner
DX: M25.551 Pain in right hip (principal)
CPT/HCPCS: 73502

== ENCOUNTER → 2021-06-17 09:30 | Outpatient (CLI) | payer OTHER, SELFPAY ==
--- NOTE | ~2021-06-17 | XR_ITS ---
EXAMINATION: XR lumbar spine 2-3V DATE: 06/17/2021 09:49 INDICATION: Right-sided low back pain. Right hip pain. TECHNIQUE: 3 views of lumbar spine were obtained. COMPARISON: CT abdomen and pelvis 02/08/2021 FINDINGS: There is 13 degrees levoscoliosis of thoracolumbar spine. There is 3 mm retrolisthesis of L 1 on L2 and L2 on L3 and 3 mm anterolisthesis of L3 on L4 and L4 on L5. There is mild chronic anterio r wedging of L1 vertebral body. There is severely decreased disc height at L2-L3, mildly decreased di sc height at L2-L3 and L3-L4, and severely decreased disc height at L4-L5 and L5-S1 with endplate rem odeling. There is a benign bone island in L4 spinous process. There is multilevel severe facet joint osteoarthritis. Surgical clips in the right upper quadrant are likely from cholecystectomy. IMPRESSION: 1. Severe lumbar spondylosis. 2. Thoracolumbar levoscoliosis. Reviewed, dictated and finalized at location A. NDER WORKER
== END ==
PROVIDERS: PCP Internal Medicine; Visit Provider Nurse Practitioner
DX: M47.817 Spondylosis without myelopathy or radiculopathy, lumbosacral region (principal)
CPT/HCPCS: 72100

== ENCOUNTER → 2022-01-18 09:59 | Outpatient (CLI) | payer OTHER, SELFPAY ==
--- NOTE | ~2022-01-18 | XR_ITS ---
EXAMINATION: XR lumbar spine 2-3V DATE: 01/18/2022 10:25 INDICATION: Low back pain TECHNIQUE: Anteroposterior and lateral views of the lumbar spine, and cone-down lateral view of the l umbosacral junction were obtained. COMPARISON: 06/17/2021 FINDINGS: There are 3 mm of stable retrolisthesis of L1 on L2 and L2 on L3. There are 3 mm of stable anterolisthesis of L3 on L4 and L4 on L5. Vertebral body heights are maintained. There is unchanged s evere loss of intervertebral disc space height at L1 to, L4-5, and L5-S1 and mild loss of disc space height at L2-3 and L3-4. There is severe facet joint osteoarthritis throughout the lumbar spine. No f racture is identified. IMPRESSION: 1. Severe lumbar spondylosis without acute findings or significant interval change. Reviewed, dictated and finalized at location A. IMPRESSION: 1. Severe lumbar spondylosis without acute findings or significant interval nila nge.
--- NOTE | ~2022-01-18 | XR_ITS ---
EXAMINATION: XR hip RT min 2V DATE: 01/18/2022 10:25 INDICATION: Right hip pain TECHNIQUE: Two views of right hip were obtained. COMPARISON: 06/10/2021 FINDINGS: Bone alignment is normal. There is no fracture. Again noted is heterotopic ossification adj acent to the greater trochanter. Phleboliths are noted in the pelvis. IMPRESSION: 1. No acute osseous abnormality. Reviewed, dictated and finalized at location A.
== END ==
PROVIDERS: PCP Internal Medicine; Visit Provider Internal Medicine
DX: M47.817 Spondylosis without myelopathy or radiculopathy, lumbosacral region (principal); M25.551 Pain in right hip
CPT/HCPCS: 72100; 73502

== ENCOUNTER 2022-02-03 14:15 | Outpatient (CLI) | payer OTHER, SELFPAY ==
--- NOTE | ~2022-02-03 | MR_ITS ---
EXAMINATION: MR lumbar spine wo con DATE: 02/03/2022 18:41 INDICATION: Lumbar radiculopathy. TECHNIQUE: Magnetic resonance imaging (MRI) of the lumbar spine was performed without intravenous con trast. Sequences included sagittal T2-weighted FSE, sagittal T2-weighted FS FSE, sagittal T1-weighted FSE, and axial T2-weighted FSE. COMPARISON: Lumbar spine radiographs 01/18/2022 FINDINGS: There is 12 degrees levoscoliosis of lumbar spine. There is 4 mm retrolisthesis of L1 on L2 , 2 mm retrolisthesis of L2 on L3, 3 mm anterolisthesis of L3 on L4 and L4 on L5, and 2 mm anterolist hesis of L5 on S1. There is mild chronic anterior wedging of T12 and L1 vertebral bodies. There is se verely decreased disc height at L1-L2, mildly decreased disc height at L2-L3 and L3-L4, and moderatel y decreased disc height at L4-L5 and L5-S1 with endplate remodeling. The distal spinal cord signal in tensity is normal. The conus medullaris is at L1. 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 There are cysts in t he kidneys measuring up to 13 mm on the right. The following disc levels are specifically discussed: L1-L2: The disc is bulging. There is mild right and moderate left facet joint osteoarthritis. There i s mild bilateral neural foraminal stenosis. There is mild central canal stenosis. L2-L3: The disc is bulging. There is severe right and moderate left facet joint osteoarthritis. There is moderate right and mild left neural foraminal stenosis. There is mild central canal stenosis. L3-L4: The disc is bulging. There is severe bilateral facet joint osteoarthritis. There is mild bilat eral neural foraminal stenosis. There is mild central canal stenosis. L4-L5: The disc is bulging. There is severe bilateral facet joint osteoarthritis. There is mild right and moderate left neural foraminal stenosis. There is mild central canal stenosis. L5-S1: The disc is bulging and has an annular fissure. There is severe bilateral facet joint osteoart hritis. There is mild bilateral neural foraminal stenosis. There is mild central canal stenosis. IMPRESSION: 1. Severe lumbar spondylosis. 2. Lumbar levoscoliosis. Reviewed, dictated and finalized at location A.
== END 2022-02-03 14:16 | disposition home or self-care (01) ==
PROVIDERS: PCP Internal Medicine; Visit Provider Internal Medicine
DX: M54.16 Radiculopathy, lumbar region (principal); M43.06 Spondylolysis, lumbar region; M41.86 Other forms of scoliosis, lumbar region
CPT/HCPCS: 72148

== ENCOUNTER → 2022-04-11 12:12 | Outpatient (CLI) | payer OTHER, SELFPAY ==
--- NOTE | ~2022-04-11 | MM_ITS ---
EXAMINATION: MM screening [facility] BI w [facility] HISTORY: Screening mammogram TECHNIQUE: Craniocaudal and mediolateral oblique 3-D tomosynthesis images were obtained and synthetic 2-D images were generated. CAD analysis was submitted and interpreted. COMPARISON: 04/07/2021, 04/05/2020, 04/01/2019 BREAST PARENCHYMAL COMPOSITION: There are scattered areas of fibroglandular density. FINDINGS: No suspicious mass, calcification, or architectural distortion are identified in either kirit ast to suggest malignancy. There has been no suspicious interval change. IMPRESSION: 1. No mammographic evidence of malignancy. 2. Recommend routine screening mammography in one year. BI-RADS Category 1: Negative Reviewed, dictated and finalized at location A. 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
== END ==
PROVIDERS: PCP Family Medicine; Visit Provider Nurse Practitioner
DX: Z12.31 Encounter for screening mammogram for malignant neoplasm of breast (principal)
CPT/HCPCS: 77063; 77067

== ENCOUNTER 2022-08-15 00:57 | Day surgery (SDC) | payer OTHER, SELFPAY ==
[2022-08-02 14:16] VITALS: BMI 27.1
[2022-08-15 06:17] VITALS: BP 155/73; PULSE 63; RESP 16; TEMP 36; O2SAT 100
[2022-08-15] MEDS: LACTATED RINGERS 1,000 ML 150 ML IV CONT (06:22)
--- NOTE | 2022-08-15 07:17 | WPDANESEPPF ---
Anes - Initial Pre Proc Eval Procedure: Operation Date: 08/15/22 07:30 Proposed Procedures p Colonoscopy - Michael White MD Date/Time: 08/15/22 07:17 Surgeon: Michael White MD Pre Op Diagnosis: hemorrhoids Patient Data Age: 81 Gender: F Height: 1.52 m Weight: 63.4 kg Last Vital Signs Temp 96.8 F L 08/15/22 06:17 Pulse 63 08/15/22 06:17 Resp 16 08/15/22 06:17 BP 155/73 H 08/15/22 06:17 Pulse Ox 100 08/15/22 06:17 O2 Del Method Room Air 08/15/22 06:17 Allergies Allergy/AdvReac Type Severity Reaction Status Date / Time Sulfa (Sulfonamide Allergy Severe HIVE, Verified 08/15/22 06:14 Antibiotics) THROAT TIGHTENING rosuvastatin [From Crestor] AdvReac Intermediate Joint Pain Verified 08/15/22 06:14 Home Medications Medication Instructions Recorded Confirmed Type ascorbic acid (vitamin C) 500 mg 500 mg PO DAILY 01/07/20 08/15/22 History tablet (Vitamin C) multivit with 1 tablet PO DAILY 01/07/20 08/15/22 History luwyduqb-olql-MC-lutein 8 mg iron-400 mcg-300 mcg tablet (Multivitamin Women 50 Plus) vitamin E 268 mg (400 unit) capsule 400 unit PO DAILY 01/07/20 08/15/22 History cholecalciferol (vitamin D3) 50 50 mcg PO DAILY #30 tabs 07/06/21 08/15/22 Rx mcg (2,000 unit) tablet mecobalamin (vitamin B12) 1,000 1,000 mcg sublingual DAILY #30 tabs 07/06/21 08/15/22 Rx mcg disintegrating tablet,sublingual omeprazole 20 mg capsule,delayed 20 mg PO BID #180 caps 08/17/21 08/15/22 Rx release levothyroxine 50 mcg tablet 50 mcg PO DAILY #45 tabs 02/08/22 08/15/22 Rx levothyroxine 75 mcg tablet See Rx Instructions .Route 02/08/22 08/15/22 Rx .COMPLEX #45 tabs fluticasone propionate 50 See Rx Instructions .Route 02/24/22 08/15/22 Rx mcg/actuation nasal .COMPLEX #16 mL spray,suspension carvedilol 12.5 mg tablet 12.5 mg PO BID #180 tabs 03/01/22 08/15/22 Rx simvastatin 20 mg tablet 20 mg PO DAILY #90 tabs 03/01/22 08/15/22 Rx hydrocortisone 2.5 % topical cream 1 applic RECTAL BID PRN 07/13/22 08/15/22 Rx with perineal applicator hemorrhoids #30 grams (Anusol-HC) Patient hx anesthesia problems: none Family hx anesthesia problems: none Results Review: All pre-operative results and documents have been reviewed as part of the pre-operative evaluation. [facility] Past Medical History Medical History (Updated 07/13/22 @ 10:33 by Rey Gaytan MD) Acute non-recurrent maxillary sinusitis Anemia COVID-19 Encounter to establish care H/O arthritis Hemorrhoids Hypercholesteremia Hypertension Surgical History Surgical History History of appendectomy 1960 History of hysterectomy 1972 Hx of removal of ovary 1960 Family History Family History Sibling Family history of malignant neoplasm of breast in first degree relative Family history of lupus erythematosus Family history of gastrointestinal disorder Hypertension Mother Family history of Alzheimer's disease Patient's mother is Hypertension Father Patient's father is Alcoholism Other Diabetes mellitus Social History Social History (Updated 03/09/22 @ 14:12 by Kika Arango [facility]) Smoking packs per day: 1 Smoking cigarettes per day: 20.0 Years smoked: 2 Smoking pack-years: 2.00 Smoking status: Former smoker Tobacco type: cigarettes Second hand tobacco smoke exposure: No Smoking end date: 04/09/1966 Alcohol intake: never Substance use: never Substance use type: does not use Lack of Transportation: No Lack of Food: Never True Current Housing: I Have Housing Concerned About Future Housing: No Difficulty Paying Gas/Electric Bills: No Difficulty Paying for Meds: No Currently Unemployed: No Education: High School Diploma/GED Difficulty w/ Childcare or Family Care: No Living a
--- NOTE | 2022-08-15 07:26 | PM.HPGS ---
History of Present Illness History of Present Illness Consent: Risks, benefits, and alternatives have been discussed and questions answered. Patient agrees to proceed with procedure. Chief complaint: hemorrhoids Narrative: Breanna Franco is a 81 year old female Presents for colonoscopy. Patient reports that she recently had 3 days of bright red blood per rectum. She denies any significant abdominal pain. She presents for colonoscopy to evaluate more thoroughly. Patient states in general her bowel habits been normal. She was briefly given a trial of suppositories after episodes of rectal bleeding. Family history noncontributory. Previous colonoscopy 10 years ago revealed diverticulosis and internal hemorrhoids. Review of Systems Review of Systems: Review of systems noncontributory. [facility] Past Medical History Medical History (Updated 08/15/22 @ 07:27 by Michael White MD) Acute non-recurrent maxillary sinusitis Anemia COVID-19 Encounter to establish care H/O arthritis Hemorrhoids Hypercholesteremia Hypertension Surgical History Surgical History History of appendectomy 1960 History of hysterectomy 1972 Hx of removal of ovary 1960 Family History Family History Sibling Family history of malignant neoplasm of breast in first degree relative Family history of lupus erythematosus Family history of gastrointestinal disorder Hypertension Mother Family history of Alzheimer's disease Patient's mother is Hypertension Father Patient's father is Alcoholism Other Diabetes mellitus Social History Social History (Updated 03/09/22 @ 14:12 by Kika Arango [facility]) Smoking packs per day: 1 Smoking cigarettes per day: 20.0 Years smoked: 2 Smoking pack-years: 2.00 Smoking status: Former smoker Tobacco type: cigarettes Second hand tobacco smoke exposure: No Smoking end date: 04/09/1966 Alcohol intake: never Substance use: never Substance use type: does not use Lack of Transportation: No Lack of Food: Never True Current Housing: I Have Housing Concerned About Future Housing: No Difficulty Paying Gas/Electric Bills: No Difficulty Paying for Meds: No Currently Unemployed: No Education: High School Diploma/GED Difficulty w/ Childcare or Family Care: No Living arrangements: with family Occupation/Education: retired Spiritual care concerns: No Meds Home Medications and Allergies Home Medications Medication Instructions Recorded Confirmed Type ascorbic acid (vitamin C) 500 mg 500 mg PO DAILY 01/07/20 08/15/22 History tablet (Vitamin C) multivit with 1 tablet PO DAILY 01/07/20 08/15/22 History slztkzlv-bsdn-MG-lutein 8 mg iron-400 mcg-300 mcg tablet (Multivitamin Women 50 Plus) vitamin E 268 mg (400 unit) capsule 400 unit PO DAILY 01/07/20 08/15/22 History cholecalciferol (vitamin D3) 50 50 mcg PO DAILY #30 tabs 07/06/21 08/15/22 Rx mcg (2,000 unit) tablet mecobalamin (vitamin B12) 1,000 1,000 mcg sublingual DAILY #30 tabs 07/06/21 08/15/22 Rx mcg disintegrating tablet,sublingual omeprazole 20 mg capsule,delayed 20 mg PO BID #180 caps 08/17/21 08/15/22 Rx release levothyroxine 50 mcg tablet 50 mcg PO DAILY #45 tabs 02/08/22 08/15/22 Rx levothyroxine 75 mcg tablet See Rx Instructions .Route 02/08/22 08/15/22 Rx .COMPLEX #45 tabs fluticasone propionate 50 See Rx Instructions .Route 02/24/22 08/15/22 Rx mcg/actuation nasal .COMPLEX #16 mL spray,suspension carvedilol 12.5 mg tablet 12.5 mg PO BID #180 tabs 03/01/22 08/15/22 Rx simvastatin 20 mg tablet 20 mg PO DAILY #90 tabs 03/01/22 08/15/22 Rx hydrocortisone 2.5 % topical cream 1 applic RECTAL BID PRN 07/13/22 08/15/22 Rx with perineal applicator hemorrhoids #30 grams (Anusol-HC) Allergies Allergy/AdvR
[2022-08-15 08:05] VITALS: BP 153/87; PULSE 69; RESP 19; O2SAT 100
[2022-08-15 08:15] VITALS: BP 172/75; PULSE 69; RESP 19; O2SAT 100
== END 2022-08-15 08:30 | disposition home or self-care (01) ==
PROVIDERS: PCP Family Medicine; Visit Provider Internal Medicine Gastroenterology
PROC: 0DJD8ZZ Inspection of Lower Intestinal Tract, Via Natural or Artificial Opening Endoscopic (ICD-10-PCS; CPT 45378; principal; 2022-08-15 07:30)
DX: D12.0 Benign neoplasm of cecum (principal); K64.8 Other hemorrhoids; K57.30 Diverticulosis of large intestine without perforation or abscess without bleeding; D64.9 Anemia, unspecified; I10 Essential (primary) hypertension; E78.5 Hyperlipidemia, unspecified; Z87.891 Personal history of nicotine dependence
CPT/HCPCS: 45385; 88305; J2704; J7120

== ENCOUNTER 2023-02-27 00:50 | Day surgery (SDC) | payer OTHER, SELFPAY ==
[2023-02-12 14:10] VITALS: BMI 27.1
--- NOTE | 2023-02-23 11:00 | SUR.PREOP ---
Patient called regarding upcoming procedure. Reviewed preop instructions, appointment times, and procedure prep.
[2023-02-27 06:09] VITALS: BMI 26.9
[2023-02-27] MEDS: LACTATED RINGERS 1,000 ML 150 ML IV CONT (06:33)
[2023-02-27 06:52] VITALS: BP 157/100; PULSE 64; RESP 18; TEMP 36.3; O2SAT 98
--- NOTE | 2023-02-27 07:05 | WPDANESEPPF ---
Anes - Initial Pre Proc Eval Procedure: Operation Date: 02/27/23 07:30 Proposed Procedures p Colonoscopy - Michael White MD Date/Time: 02/27/23 07:05 Surgeon: Michael White MD Pre Op Diagnosis: cecal polyp Patient Data Age: 82 Gender: F Height: 1.52 m Weight: 62.5 kg Last Vital Signs Temp 97.3 F L 02/27/23 06:52 Pulse 64 02/27/23 06:52 Resp 18 02/27/23 06:52 BP 157/100 H 02/27/23 06:52 Pulse Ox 98 02/27/23 06:52 O2 Del Method Room Air 02/27/23 06:52 Allergies Allergy/AdvReac Type Severity Reaction Status Date / Time Sulfa (Sulfonamide Allergy Severe HIVE, Verified 02/12/23 14:05 Antibiotics) THROAT TIGHTENING rosuvastatin [From Crestor] AdvReac Intermediate Joint Pain Verified 02/12/23 14:05 Home Medications Medication Instructions Recorded Confirmed Type ascorbic acid (vitamin C) 500 mg 500 mg PO DAILY 01/07/20 02/12/23 History tablet (Vitamin C) onxittae-lhmn-wubb 8 mg-folic 400 1 tablet PO DAILY 01/07/20 02/12/23 History mcg-K 50 mcg-lutein 300 mcg tablet (Multivitamin Women 50 Plus) vitamin E 268 mg (400 unit) capsule 400 unit PO DAILY 01/07/20 02/12/23 History cholecalciferol (vitamin D3) 50 50 mcg PO DAILY #30 tabs 07/06/21 02/12/23 Rx mcg (2,000 unit) tablet mecobalamin (vitamin B12) 1,000 1,000 mcg sublingual DAILY #30 tabs 07/06/21 02/12/23 Rx mcg disintegrating tablet,sublingual hydrocortisone 2.5 % topical cream 1 applic RECTAL BID PRN 07/13/22 02/12/23 Rx with perineal applicator hemorrhoids #30 grams (Anusol-HC) carvedilol 12.5 mg tablet 12.5 mg PO BID #180 tabs 08/31/22 02/12/23 Rx omeprazole 20 mg capsule,delayed 20 mg PO BID #180 caps 08/31/22 02/12/23 Rx release simvastatin 20 mg tablet 20 mg PO DAILY #90 tabs 08/31/22 02/12/23 Rx fluticasone propionate 50 1 spray intranasal BID #16 mL 10/03/22 02/12/23 Rx mcg/actuation nasal spray,suspension levothyroxine 50 mcg tablet 50 mcg PO DAILY #45 tabs 11/29/22 02/12/23 Rx levothyroxine 75 mcg tablet 75 mcg PO .COMPLEX #45 tabs 11/29/22 02/12/23 Rx aspirin 81 mg capsule 81 mg PO DAILY 02/12/23 02/12/23 History carvedilol 12.5 mg tablet mg 02/12/23 History Patient hx anesthesia problems: none Family hx anesthesia problems: none Results Review: All pre-operative results and documents have been reviewed as part of the pre-operative evaluation. [facility] Past Medical History Medical History (Updated 12/13/22 @ 13:02 by Rey Gaytan MD) Acute diverticulitis Acute non-recurrent maxillary sinusitis Anemia Hemoglobin 12.5 with iron 82, 19% saturation, ferritin 58, vitamin B12 1221 and folic acid 20 on 09/14/2022. Anxiety At low risk for fall BMI 27.0-27.9,adult Cataract Bilateral cataract surgery. Cholecystitis COVID-19 Encounter for surgical aftercare following surgery on the digestive system Encounter to establish care H/O arthritis Hemorrhoids Hypercholesteremia Hypertension Lesion of throat Overweight (BMI 25.0-29.9) Polyp of colon (08/15/22) large sessile polyp , tubular adenoma, in the cecum removed in pieces 08/15/2022 with follow-up in 6-12 months. Seasonal allergic rhinitis UTI (urinary tract infection) Surgical History Surgical History History of appendectomy 1960 History of hysterectomy 1973 Hx of removal of ovary 1960 Family History Family History Sibling Family history of malignant neoplasm of breast in first degree relative Family history of lupus erythematosus Family history of gastrointestinal disorder Hypertension Mother Family history of Alzheimer's disease Patient's mother is Hypertension Father Patient's father is Alcoholism Other Diabetes mellitus Social History Social History (Updated 03/09/22 @ 14:12 by Kika Arango Elizabeth) Smoking packs per day: 1
--- NOTE | 2023-02-27 07:08 | WPDANESEPPF ---
Anes - Initial Pre Proc Eval Procedure: Operation Date: 02/27/23 07:30 Proposed Procedures p Colonoscopy - Michael White MD Date/Time: 02/27/23 07:08 Surgeon: Michael White MD Pre Op Diagnosis: cecal polyp Patient Data Age: 82 Gender: F Height: 1.52 m Weight: 62.5 kg Last Vital Signs Temp 36.3 C L 02/27/23 06:52 Pulse 64 02/27/23 06:52 Resp 18 02/27/23 06:52 BP 157/100 H 02/27/23 06:52 Pulse Ox 98 02/27/23 06:52 O2 Del Method Room Air 02/27/23 06:52 Allergies Allergy/AdvReac Type Severity Reaction Status Date / Time Sulfa (Sulfonamide Allergy Severe HIVE, Verified 02/12/23 14:05 Antibiotics) THROAT TIGHTENING rosuvastatin [From Crestor] AdvReac Intermediate Joint Pain Verified 02/12/23 14:05 Home Medications Medication Instructions Recorded Confirmed Type ascorbic acid (vitamin C) 500 mg 500 mg PO DAILY 01/07/20 02/12/23 History tablet (Vitamin C) xwmwektu-ceuh-sesh 8 mg-folic 400 1 tablet PO DAILY 01/07/20 02/12/23 History mcg-K 50 mcg-lutein 300 mcg tablet (Multivitamin Women 50 Plus) vitamin E 268 mg (400 unit) capsule 400 unit PO DAILY 01/07/20 02/12/23 History cholecalciferol (vitamin D3) 50 50 mcg PO DAILY #30 tabs 07/06/21 02/12/23 Rx mcg (2,000 unit) tablet mecobalamin (vitamin B12) 1,000 1,000 mcg sublingual DAILY #30 tabs 07/06/21 02/12/23 Rx mcg disintegrating tablet,sublingual hydrocortisone 2.5 % topical cream 1 applic RECTAL BID PRN 07/13/22 02/12/23 Rx with perineal applicator hemorrhoids #30 grams (Anusol-HC) carvedilol 12.5 mg tablet 12.5 mg PO BID #180 tabs 08/31/22 02/12/23 Rx omeprazole 20 mg capsule,delayed 20 mg PO BID #180 caps 08/31/22 02/12/23 Rx release simvastatin 20 mg tablet 20 mg PO DAILY #90 tabs 08/31/22 02/12/23 Rx fluticasone propionate 50 1 spray intranasal BID #16 mL 10/03/22 02/12/23 Rx mcg/actuation nasal spray,suspension levothyroxine 50 mcg tablet 50 mcg PO DAILY #45 tabs 11/29/22 02/12/23 Rx levothyroxine 75 mcg tablet 75 mcg PO .COMPLEX #45 tabs 11/29/22 02/12/23 Rx aspirin 81 mg capsule 81 mg PO DAILY 02/12/23 02/12/23 History carvedilol 12.5 mg tablet mg 02/12/23 History Patient hx anesthesia problems: none Family hx anesthesia problems: none Results Review: All pre-operative results and documents have been reviewed as part of the pre-operative evaluation. [facility] Past Medical History Medical History (Updated 12/13/22 @ 13:02 by Rey Gaytan MD) Acute diverticulitis Acute non-recurrent maxillary sinusitis Anemia Hemoglobin 12.5 with iron 82, 19% saturation, ferritin 58, vitamin B12 1221 and folic acid 20 on 09/14/2022. Anxiety At low risk for fall BMI 27.0-27.9,adult Cataract Bilateral cataract surgery. Cholecystitis COVID-19 Encounter for surgical aftercare following surgery on the digestive system Encounter to establish care H/O arthritis Hemorrhoids Hypercholesteremia Hypertension Lesion of throat Overweight (BMI 25.0-29.9) Polyp of colon (08/15/22) large sessile polyp , tubular adenoma, in the cecum removed in pieces 08/15/2022 with follow-up in 6-12 months. Seasonal allergic rhinitis UTI (urinary tract infection) Surgical History Surgical History History of appendectomy 1960 History of hysterectomy 1973 Hx of removal of ovary 1960 Family History Family History Sibling Family history of malignant neoplasm of breast in first degree relative Family history of lupus erythematosus Family history of gastrointestinal disorder Hypertension Mother Family history of Alzheimer's disease Patient's mother is Hypertension Father Patient's father is Alcoholism Other Diabetes mellitus Social History Social History (Updated 03/09/22 @ 14:12 by Kika Arango Elizabeth) Smoking packs per day: 1
--- NOTE | 2023-02-27 07:22 | PM.HPGS ---
History of Present Illness History of Present Illness Consent: Risks, benefits, and alternatives have been discussed and questions answered. Patient agrees to proceed with procedure. Chief complaint: cecal polyp Narrative: Breanna Franco is a 82 year old female Presents for colonoscopy. Patient has a history of rectal bleeding attributed to hemorrhoids. Colonoscopy performed in August revealed a large cecal polyp. This was removed piecemeal fashion from the cecum. It was uncertain if this was completely excised. Patient returns today for follow-up colonoscopy to ensure complete excision of this polyp. Patient reports in the last 6 months she has had episode of diverticulitis. This was treated with antibiotics. Currently her abdominal pain is resolved. Bowel habits returned to normal. Review of Systems Review of Systems: Review of systems is noncontributory. [facility] Past Medical History Medical History (Updated 12/13/22 @ 13:02 by Rey Gaytan MD) Acute diverticulitis Acute non-recurrent maxillary sinusitis Anemia Hemoglobin 12.5 with iron 82, 19% saturation, ferritin 58, vitamin B12 1221 and folic acid 20 on 09/14/2022. Anxiety At low risk for fall BMI 27.0-27.9,adult Cataract Bilateral cataract surgery. Cholecystitis COVID-19 Encounter for surgical aftercare following surgery on the digestive system Encounter to establish care H/O arthritis Hemorrhoids Hypercholesteremia Hypertension Lesion of throat Overweight (BMI 25.0-29.9) Polyp of colon (08/15/22) large sessile polyp , tubular adenoma, in the cecum removed in pieces 08/15/2022 with follow-up in 6-12 months. Seasonal allergic rhinitis UTI (urinary tract infection) Surgical History Surgical History History of appendectomy 1960 History of hysterectomy 1972 Hx of removal of ovary 1960 Family History Family History Sibling Family history of malignant neoplasm of breast in first degree relative Family history of lupus erythematosus Family history of gastrointestinal disorder Hypertension Mother Family history of Alzheimer's disease Patient's mother is Hypertension Father Patient's father is Alcoholism Other Diabetes mellitus Social History Social History (Updated 03/09/22 @ 14:12 by Kika Arango [facility]) Smoking packs per day: 1 Smoking cigarettes per day: 20.0 Years smoked: 2 Smoking pack-years: 2.00 Smoking status: Never smoker Tobacco type: cigarettes Second hand tobacco smoke exposure: No Smoking end date: 04/09/1966 Alcohol intake: never Substance use: never Substance use type: does not use Lack of Transportation: No Lack of Food: Never True Current Housing: I Have Housing Concerned About Future Housing: No Difficulty Paying Gas/Electric Bills: No Difficulty Paying for Meds: No Currently Unemployed: No Education: High School Diploma/GED Difficulty w/ Childcare or Family Care: No Living arrangements: with family Occupation/Education: retired Spiritual care concerns: No Meds Home Medications and Allergies Home Medications Medication Instructions Recorded Confirmed Type ascorbic acid (vitamin C) 500 mg 500 mg PO DAILY 01/07/20 02/12/23 History tablet (Vitamin C) ckkaiqwb-utca-tydt 8 mg-folic 400 1 tablet PO DAILY 01/07/20 02/12/23 History mcg-K 50 mcg-lutein 300 mcg tablet (Multivitamin Women 50 Plus) vitamin E 268 mg (400 unit) capsule 400 unit PO DAILY 01/07/20 02/12/23 History cholecalciferol (vitamin D3) 50 50 mcg PO DAILY #30 tabs 07/06/21 02/12/23 Rx mcg (2,000 unit) tablet mecobalamin (vitamin B12) 1,000 1,000 mcg sublingual DAILY #30 tabs 07/06/21 02/12/23 Rx mcg disintegrating tablet,sublingual hydrocortisone 2.5 % topical cream 1 applic RECTAL BID PRN 07/13/22 02/12/23 Rx with harshil
[2023-02-27] MEDS: SIMETHICONE ORAL SUSPENSION 20 MG/0.3 ML 30 ML BOTTLE 0.6 ML IRRIGATION (07:43)
[2023-02-27 07:55] VITALS: BP 115/62; PULSE 58; RESP 16; O2SAT 96
[2023-02-27 08:05] VITALS: BP 111/62; PULSE 61; RESP 16; O2SAT 97
[2023-02-27 08:15] VITALS: BP 123/89; PULSE 64; RESP 21; O2SAT 99
== END 2023-02-27 08:32 | disposition home or self-care (01) ==
PROVIDERS: PCP Family Medicine; Visit Provider Internal Medicine Gastroenterology
PROC: 0DJD8ZZ Inspection of Lower Intestinal Tract, Via Natural or Artificial Opening Endoscopic (ICD-10-PCS; CPT 45378; principal; 2023-02-27 07:30)
DX: Z09 Encounter for follow-up examination after completed treatment for conditions other than malignant neoplasm (principal); D12.2 Benign neoplasm of ascending colon; K64.8 Other hemorrhoids; K57.30 Diverticulosis of large intestine without perforation or abscess without bleeding; D64.9 Anemia, unspecified; F41.9 Anxiety disorder, unspecified; K81.9 Cholecystitis, unspecified; E78.00 Pure hypercholesterolemia, unspecified; I10 Essential (primary) hypertension; J30.2 Other seasonal allergic rhinitis; F17.210 Nicotine dependence, cigarettes, uncomplicated; Z79.82 Long term (current) use of aspirin; Z80.3 Family history of malignant neoplasm of breast
CPT/HCPCS: 45380; 88305; J2001; J2704; J7120

== ENCOUNTER → 2023-04-13 07:17 | Outpatient (CLI) | payer OTHER, SELFPAY ==
--- NOTE | ~2023-04-13 | MM_ITS ---
EXAMINATION: MM screening lucia BI w erica HISTORY: Screening mammogram, family history of breast cancer in her sister. TECHNIQUE: Craniocaudal and mediolateral oblique 3-D tomosynthesis images were obtained and synthetic 2-D images were generated. CAD analysis was submitted and interpreted. COMPARISON: 04/11/2022, 04/07/2021, 04/05/2020 BREAST PARENCHYMAL COMPOSITION:Not Dense. There are scattered areas of fibroglandular density. FINDINGS: No suspicious mass, calcification, or architectural distortion are identified in either kirit ast to suggest malignancy. There has been no suspicious interval change. IMPRESSION: No mammographic evidence of malignancy. Recommend routine screening mammography in one year. BI-RADS Category 1: Negative Reviewed, dictated and finalized at location . 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
== END ==
PROVIDERS: PCP Family Medicine; Visit Provider Family Medicine
DX: Z12.31 Encounter for screening mammogram for malignant neoplasm of breast (principal)
CPT/HCPCS: 77063; 77067

== ENCOUNTER 2023-08-27 09:13 | Observation (INO) | payer OTHER, SELFPAY ==
--- NOTE | ~2023-08-27 | CT_ITS ---
EXAMINATION: CT abdomen pelvis w con DATE: 08/27/2023 10:53 INDICATION: Abdominal pain. TECHNIQUE: Computed tomography (CT) of the abdomen and pelvis was performed with 100 mL Omnipaque 350 intravenous contrast. Automated exposure control and iterative reconstruction technique were employe d. The dose-length product was 427.63 mGy-cm. COMPARISON: CT abdomen and pelvis 02/08/2021 FINDINGS: The visualized portions of the lung bases demonstrate mild atelectasis. No pleural effusion . The heart size is normal. No pericardial effusion. There are cysts in the liver measuring up to 8 m m. There are changes of cholecystectomy. The spleen, pancreas, adrenal glands are normal. There are c ysts in the kidneys measuring up to 16 mm on the left. There are scattered diverticula in the colon. There is wall thickening of the sigmoid colon with surrounding fat stranding. There are no dilated lo ops of bowel. The appendix is not visualized. There are no pathologically enlarged lymph nodes. There is no free intraperitoneal fluid. There is thoracolumbar levoscoliosis and severe lumbar spondylosis . There is a benign bone island in L4 spinous process. IMPRESSION: 1. Acute sigmoid diverticulitis. No perforation or abscess. Reviewed, dictated and finalized at location A.
[2023-08-27 09:29] VITALS: BP 157/91; PULSE 81; RESP 16; TEMP 36.6; O2SAT 98
[2023-08-27 09:35] VITALS: BP 157/91; PULSE 64; RESP 16; O2SAT 98
[2023-08-27 09:46] VITALS: BP 142/81; PULSE 68; RESP 14; O2SAT 98
[2023-08-27 09:47] LABS: Basophils Percent Auto 0.3 % (0.2-1.2); Eosinophils Percent Auto 0.5 % (0-4.4); Hematocrit 39.4 % (37.0-47.0); Hemoglobin 13.1 g/dL (12.0-15.0); Immature Granulocyte Absolute 0.01 K/mm3 (0.00-0.031); Immature Granulocyte Percent A 0.1 % (0-0.5); Lymphocytes Absolute Auto 1.19 K/mm3 (0.9-3.2); Lymphocytes Percent Auto 15.6 % (18.3-44.2); Mean Corpuscular HGB Conc 33.2 g/dl (32-36); Mean Corpuscular Hemoglobin 30.5 pg (26-34); Mean Corpuscular Volume 91.8 fl (80-100); Mean Platelet Volume 9.4 fl (7.4-10.4); Monocytes Absolute Auto 0.7 K/mm3 (0.1-0.6); Monocytes Percent Auto 8.7 % (2.6-8.5); Neutrophils Absolute Auto 5.7 K/mm3 (1.3-6.7); Neutrophils Percent Auto 74.8 % (45.5-73.1); Platelet Count Result 300 k/mm3 (150-375); Red Blood Count 4.29 M/mm3 (4.2-5.4); Red Cell Distribution Width 12.7 % (11.5-14.5); White Blood Count 7.6 K/mm3 (4.5-10.0)
[2023-08-27 10:01] LABS: Alanine Aminotransferase 16 U/L (6-35); Albumin Level 4.8 g/dL (3.5-5.1); Alkaline Phosphatase 73 U/L (38-126); Anion Gap 9 mmol/L (4-12); Aspartate Amino Transferase 31 U/L (14-36); Bilirubin,Total 0.6 mg/dL (0.2-1.3); Blood Urea Nitrogen 11 mg/dL (7-17); Calcium 9.5 mg/dL (8.4-10.2); Carbon Dioxide 24 mmol/L (22-30); Chloride 104 mmol/L (98-107); Estimated CRCL calculation 40 ml/min; Estimated Glomerular Filt Rate > 60; Glucose 103 mg/dL (65-110); Lipase 67 U/L (23-300); Sodium 137 mmol/L (137-145)
--- NOTE | 2023-08-27 10:23 | ED.GENADULT ---
HPI - General Adult General Chief complaint: Abdominal Pain <Ludivina Cerna August, BENEFITS SPECIALIST - Last Filed: 08/27/23 17:02> Stated complaint: abdominal pain <Ludivina Cerna August, BENEFITS SPECIALIST - Last Filed: 08/27/23 17:02> Time Seen by Provider: 08/27/23 09:36 <Ludivina Cerna August, BENEFITS SPECIALIST - Last Filed: 08/27/23 17:02> History of Present Illness HPI narrative: Breanna Franco is an 82 y/o female who presents with complaints of having left lower abdominal pain. She states that her symptoms of abdominal pain started about a week ago, her PCP put her on antibiotics for diverticulitis 3 days ago, and she states she is feeling worse. Increased left lower and left flank pain Denies changes with urine Last BM was today about 4 diarrhea episodes and states that she has had some intermittent blood in her stools mostly when she wipes. <Ludivina Cerna August, BENEFITS SPECIALIST - Last Filed: 08/27/23 17:02> Related Data Home medications: Home Medications Medication Instructions Recorded Confirmed isdajvfr-ssqb-hwxc 8 mg-folic 400 1 tablet PO DAILY 01/07/20 08/27/23 mcg-K 50 mcg-lutein 300 mcg tablet (Multivitamin Women 50 Plus) aspirin 81 mg capsule 81 mg PO DAILY 02/12/23 08/27/23 fluticasone propionate 50 1 spray intranasal BID PRN Nasal 08/27/23 08/27/23 mcg/actuation nasal Congestion spray,suspension <Ludivina Cerna August, BENEFITS SPECIALIST - Last Filed: 08/27/23 17:02> Allergies/adverse reactions: Allergies Allergy/AdvReac Type Severity Reaction Status Date / Time Sulfa (Sulfonamide Allergy Severe HIVE, Verified 08/27/23 09:35 Antibiotics) THROAT TIGHTENING rosuvastatin [From Crestor] AdvReac Intermediate Joint Pain Verified 08/27/23 09:35 <Ludivina Cerna August, BENEFITS SPECIALIST - Last Filed: 08/27/23 17:02> Review of Systems Review of Systems: CONSTITUTIONAL: Denies fever, chills, or sweats. EYES: Denies visual changes, redness, or discharge. ENT: Denies rhinorrhea, congestion, sore throat, or otalgia. CARDIOVASCULAR: Denies chest pain, palpitations, or edema. RESPIRATORY: Denies cough or dyspnea. GASTROINTESTINAL: + abdominal pain with diarrhea/ blood with wiping and nausea no vomiting GENITOURINARY: Denies dysuria or hematuria. SKIN: Denies rash or itching. MUSCULOSKELETAL: Denies back pain, joint pain, or myalgia. NEUROLOGIC: Denies headache, numbness, dizziness, or weakness. PSYCHIATRIC: Denies anxiety or depression. <Ludivina Hannon, BENEFITS SPECIALIST - Last Filed: 08/27/23 17:02> [facility] Past Medical History Medical History: Medical History (Updated 08/27/23 @ 17:02 by Ludivina Hannon, BENEFITS SPECIALIST) Acute diverticulitis Acute non-recurrent maxillary sinusitis Anemia Hemoglobin 12.5 with iron 82, 19% saturation, ferritin 58, vitamin B12 1221 and folic acid 20 on 09/14/2022. Anxiety At low risk for fall BMI 27.0-27.9,adult BMI 28.0-28.9,adult Cataract Bilateral cataract surgery. Cholecystitis COVID-19 Encounter for surgical aftercare following surgery on the digestive system Encounter to establish care H/O arthritis Hemorrhoids Hypercholesteremia Hypertension Lesion of throat Overweight (BMI 25.0-29.9) Polyp of colon (08/15/22) large sessile polyp , tubular adenoma, in the cecum removed in pieces 08/15/2022 with follow-up in 6-12 months.Small polyps in the ascending colon, adenomatous, On 02/27/2023. recheck in 3 years. Seasonal allergic rhinitis UTI (urinary tract infection) <Ludivina Hannon, BENEFITS SPECIALIST - Last Filed: 08/27/23 17:02> Surgical History Surgical History: Surgical History History of appendectomy 1960 History of hysterectomy 1973 Hx of removal of ovary 1960 <Ludivina Hannon, BENEFITS SPECIALIST - Last Filed: 08/27/23 17:02> Family History Family History: Family History Sibling Family history of malignant neoplasm of breast in first degree relative Family history of lupus erythematosus Family history of gastrointestinal disorder Hypertension Mother
[2023-08-27 10:47] LABS: Appearance Urine Clear (Clear); Bilirubin Urine Negative (Negative); Blood Urine Negative (Negative); Color Urine Yellow (Yellow); Glucose Urine UA Negative (Negative); Ketones Urine 1+ mg/dL (Negative); Leukocyte Esterase Ur Negative LEU/UL (Negative); Nitrate Urine Negative (Negative); Protein Urine Negative (Negative); Specific Grav Ur 1.006 (1.001-1.035); Urobilinogen Urine 0.2 mg/dL (<2.0); pH Urine 6.5 (5.0-9.0)
[2023-08-27 10:51] LABS: Add Urine Microscopic? NO
[2023-08-27] MEDS: FAMOTIDINE 20 MG/2 ML VIAL IV PUSH (11:04)
[2023-08-27] MEDS: ONDANSETRON INJ 4 MG/2 ML VIAL IV PUSH (11:04)
[2023-08-27] MEDS: KETOROLAC 30 MG/ML VIAL (*BKC) IV PUSH (11:04)
[2023-08-27] MEDS: SODIUM CHLORIDE 0.9% IV 1,000 ML 999 ML IV CONT (11:04)
[2023-08-27 12:46] VITALS: BP 140/81; PULSE 75; RESP 16; O2SAT 94
[2023-08-27] MEDS: CIPROFLOXACIN 400 MG/D5W 200ML 200 ML 200 MG IVPB ×2 (13:03→22:48)
--- NOTE | 2023-08-27 13:22 | ADMGEN ---
This patient, Breanna Franco, was admitted to Medical Room 346-01. Patient/family oriented to hospital policies and general routines including ID bracelet, bed and alarms, visiting hours, pain management, procedures, bathroom and other care routines, personal items, smoking policy, room service/diet, and visiting hours. Information on how to activate the Rapid Response Team has been discussed. Patient/Family are encouraged to report perceived risks to care and to ask questions if they do not understand what they are told or what they should do.
[2023-08-27 13:38] VITALS: BMI 25.4
[2023-08-27 13:49] VITALS: BP 136/75; PULSE 77; RESP 16; TEMP 36.4; O2SAT 96
[2023-08-27] MEDS: SODIUM CHLORIDE 0.9% IV 1,000 ML 75 ML IV CONT (14:15)
[2023-08-27] MEDS: metroNIDAZOLE 500 MG/ISO 100ML 500 MG/100 ML BAG 100 MG IVPB (14:16)
[2023-08-27 22:00] VITALS: BP 127/97; PULSE 77; RESP 18; TEMP 36.4; O2SAT 97
--- NOTE | 2023-08-27 23:22 | PM.IMHP ---
H&P: HPI History of Present Illness Date/Time: 08/27/23 23:15 Chief Complaint: Abdominal pain. Narrative: This is an 82-year-old female with hypertension, hyperlipidemia, hypothyroidism, gastroesophageal reflux disease, and recent diagnosis of diverticulitis who presented to the emergency department for evaluation of abdominal pain. She had an episode of diverticulitis about a month ago and does not think she fully recovered. One week ago she once again developed pain in the left lower quadrant and she was started on p.o. antibiotics by her primary care provider 3 days ago for the same. Her pain has been increasing as the days go on and she is having a hard time keeping down her antibiotics due to severe nausea. Her oral intake has been very poor. Her last bowel movement was earlier today and was soft but admixed with a small amount of bright red blood. There has been no mucus in the stool. She has not had a fever to her knowledge and denies vomiting. In the ED: She was afebrile on arrival with stable vital signs. Cbc and CMP were unremarkable. Urine was positive for 1+ ketones. CT of the abdomen and pelvis showed acute sigmoid diverticulitis. She was given antiemetics, analgesics, and antibiotics with plans for discharge home however the patient continued to have severe nausea and pain and did not feel she would be okay going home. She is being admitted in this setting for IV antibiotics and supportive care. Review of Systems Review of Systems: 12 systems were reviewed and are negative except for as per HPI. [facility] Past Medical History Medical History (Updated 08/27/23 @ 23:28 by Esmer Sanders PA-C) Anemia Hemoglobin 12.5 with iron 82, 19% saturation, ferritin 58, vitamin B12 1221 and folic acid 20 on 09/14/2022. Anxiety Arthritis COVID-19 Gastroesophageal reflux disease Hemorrhoids Hypercholesteremia Hypertension Polyp of colon (08/15/22) large sessile polyp , tubular adenoma, in the cecum removed in pieces 08/15/2022 with follow-up in 6-12 months.Small polyps in the ascending colon, adenomatous, On 02/27/2023. recheck in 3 years. Seasonal allergic rhinitis Surgical History Surgical History (Updated 08/27/23 @ 23:28 by Esmer Sanders PA-C) History of appendectomy (1960) History of bilateral cataract extraction History of cholecystectomy History of hysterectomy (1972) History of oophorectomy (1960) Family History Family History Sibling Family history of malignant neoplasm of breast in first degree relative Family history of lupus erythematosus Family history of gastrointestinal disorder Hypertension Mother Family history of Alzheimer's disease Patient's mother is Hypertension Father Patient's father is Alcoholism Other Diabetes mellitus Social History Social History (Updated 08/27/23 @ 23:26 by Esmer Sanders PA-C) Social History: Surrogate medical decision maker: Randal Franco, spouse. Code status: Full code. Smoking packs per day: 1 Smoking cigarettes per day: 20.0 Years smoked: 2 Smoking pack-years: 2.00 Smoking status: Former smoker Second hand tobacco smoke exposure: No Alcohol intake: never Substance use: never Substance use type: does not use Do You Feel Safe in your Home?: Yes Lack of Transportation: No Lack of Food: Never True Current Housing: I Have Housing Concerned About Future Housing: No Difficulty Paying Gas/Electric Bills: No Difficulty Paying for Meds: No Currently Unemployed: No Education: High School Diploma/GED Difficulty w/ Childcare or Family Care: No Living arrangements: with family Occupation/Education: retired Spiritual care concerns: No Meds Home Medications and Allergies Home Medications Medication Instructions Recorded Confirmed Type [id number] 8 mg-folic 400 1 tablet PO DAILY 01/07/2008/26
[2023-08-28] VITALS (7 sets, daily range): BP systolic 113–157; BP diastolic 62–78; PULSE 60–76; RESP 16–18; TEMP 36.2–36.7; O2SAT 94–96
[2023-08-28] MEDS: metroNIDAZOLE 500 MG/ISO 100ML 500 MG/100 ML BAG 100 MG IVPB ×4 (00:11→22:03)
[2023-08-28] MEDS: ACETAMINOPHEN 325 MG TABLET 650 MG PO ×2 (00:12→06:31)
[2023-08-28] MEDS: carvediloL 12.5 MG TABLET PO ×3 (00:12→21:05)
[2023-08-28] MEDS: lisinopriL 10 MG TABLET PO ×2 (00:12→08:32)
[2023-08-28 06:20] LABS: Hematocrit 35.9 % (37.0-47.0); Hemoglobin 11.4 g/dL (12.0-15.0); Mean Corpuscular HGB Conc 31.8 g/dl (32-36); Mean Corpuscular Hemoglobin 30.1 pg (26-34); Mean Corpuscular Volume 94.7 fl (80-100); Mean Platelet Volume 9.8 fl (7.4-10.4); Platelet Count Result 286 k/mm3 (150-375); Red Blood Count 3.79 M/mm3 (4.2-5.4); Red Cell Distribution Width 12.6 % (11.5-14.5); White Blood Count 7.6 K/mm3 (4.5-10.0)
[2023-08-28] MEDS: LEVOTHYROXINE SODIUM 75 MCG TABLET PO (06:28)
[2023-08-28 06:34] LABS: Anion Gap 8 mmol/L (4-12); Blood Urea Nitrogen 11 mg/dL (7-17); Calcium 8.6 mg/dL (8.4-10.2); Carbon Dioxide 21 mmol/L (22-30); Chloride 109 mmol/L (98-107); Estimated CRCL calculation 40 ml/min; Estimated Glomerular Filt Rate > 60; Glucose 82 mg/dL (65-110); Potassium 3.7 mmol/L (3.4-5.0); Sodium 138 mmol/L (137-145)
--- NOTE | 2023-08-28 07:12 | PM.IMPN ---
Progress Note: A&P Assessment and Plan (1) Sigmoid diverticulitis: Code(s): K57.32 - Diverticulitis of large intestine without perforation or abscess without bleeding Status: Acute Assessment and Plan: Patient developed the left lower quadrant pain one week ago and was started on po antibiotics by her PCP 3 days ago. She notes she has been having difficulty keeping down oral antibiotics due to ongoing nausea/vomiting. CBC without leukocytosis and patient remains afebrile. - CT scan showed acute sigmoid diverticulitis without perforation or abscess. - advance diet as tolerated - Analgesics - Antiemetics - Antibiotics: Rocephin and flagyl (2) Mild dehydration: Code(s): E86.0 - Dehydration Status: Acute Assessment and Plan: Prior to admission patient was having decreased oral intake 2/2 nausea/vomiting. Per H&P patient appeared dehydrated and received IV fluids overnight. - euvolemic on assessment - monitor (3) Hypertension: Qualifiers: Hypertension type: primary hypertension Qualified Code(s): I10 - Essential (primary) hypertension Code(s): I10 - Essential (primary) hypertension Status: Acute Assessment and Plan: Chronic, stable on home medications. - Carvedilol 12.5 mg daily - Lisinopril 10 mg daily (4) Hypothyroidism: Qualifiers: Hypothyroidism type: unspecified Qualified Code(s): E03.9 - Hypothyroidism, unspecified Code(s): E03.9 - Hypothyroidism, unspecified Status: Acute Assessment and Plan: Stable. Continue home medications. - Levothyroxine 125 mg daily - TSH 2.240 (5) Hyperlipidemia: Qualifiers: Hyperlipidemia type: mixed hyperlipidemia Qualified Code(s): E78.2 - Mixed hyperlipidemia Code(s): E78.5 - Hyperlipidemia, unspecified Status: Acute Assessment and Plan: Continue simvastatin 20 mg. (6) Gastroesophageal reflux disease: Code(s): K21.9 - Gastro-esophageal reflux disease without esophagitis Status: Acute Assessment and Plan: Well controlled on home medications. - Omeprazole 20 mg BID Time Spent With Patient Time with patient: 25 - 35 minutes Subjective Date/time seen: 08/28/23 07:12 Interval history: 82-year-old female with hypertension, hyperlipidemia, hypothyroidism, gastroesophageal reflux disease, and recent diagnosis of diverticulitis who presented to the hospital for evaluation of abdominal pain. She developed the left lower quadrant pain one week ago and was started on po antibiotics by her PCP [address] scan showed acute sigmoid diverticulitis without perforation or abscess. Patient is pleasant lying comfortably in bed. She continues to endorse abdominal pain with noted tenderness to palpation. She states that the bleeding has improved and she is no longer having diarrhea at this time. She remains afebrile. She denies nausea/vomiting. Will advance her to a liquid diet at this time. Review of Systems Review of Systems: All systems reviewed & are unremarkable except as noted in HPI and below Exam Narrative: AF HR 73 RR 18 SpO2 96 BP 113/62 General:female in no acute respiratory distress who is nontoxic appearing, lying semi recumbent in bed. HEENT: Normocephalic. Atraumatic. Pupils equal round reactive to light. Extraocular movement intact. Sclera clear and anicteric. No facial asymmetry. Chest: Lungs are clear to auscultation bilaterally. No wheezes or crackles. CV: Heart was regular rate and rhythm. S1-S2. No murmurs, gallops, or rubs. Abd: Abdomen was soft. Tender to palpation throughout. Nondistended. Positive bowel sounds. No organomegaly or masses. Ext: No clubbing, cyanosis, or edema. 2+ DP pulses bilaterally. Neuro: Patient is alert and oriented x4. Cranial nerves 2-12 are intact. Speech is clear. Psych: Normal mood and affect. Patient is pleasant and cooperative. Skin: Warm and dry. No rashes noted. Objecti
[2023-08-28] MEDS: ENOXAPARIN 40 MG/0.4 ML SYRINGE SUB-Q (08:22)
[2023-08-28] MEDS: ONDANSETRON INJ 4 MG/2 ML VIAL IV PUSH (18:03)
[2023-08-28] MEDS: PANTOPRAZOLE 40 MG TABLET PO (21:05)
[2023-08-29] MEDS: metroNIDAZOLE 500 MG/ISO 100ML 500 MG/100 ML BAG 100 MG IVPB ×3 (05:35→20:54)
[2023-08-29] MEDS: LEVOTHYROXINE SODIUM 50 MCG TABLET PO (05:35)
[2023-08-29 05:44] LABS: Basophils Percent Auto 0.2 % (0.2-1.2); Eosinophils Absolute Auto 0.2 K/mm3 (0-0.3); Eosinophils Percent Auto 3.5 % (0-4.4); Hematocrit 34.8 % (37.0-47.0); Hemoglobin 11.2 g/dL (12.0-15.0); Immature Granulocyte Absolute 0.01 K/mm3 (0.00-0.031); Immature Granulocyte Percent A 0.2 % (0-0.5); Lymphocytes Absolute Auto 1.66 K/mm3 (0.9-3.2); Lymphocytes Percent Auto 32.2 % (18.3-44.2); Mean Corpuscular HGB Conc 32.2 g/dl (32-36); Mean Corpuscular Hemoglobin 29.9 pg (26-34); Mean Platelet Volume 9.9 fl (7.4-10.4); Monocytes Absolute Auto 0.5 K/mm3 (0.1-0.6); Monocytes Percent Auto 10.5 % (2.6-8.5); Neutrophils Absolute Auto 2.8 K/mm3 (1.3-6.7); Neutrophils Percent Auto 53.4 % (45.5-73.1); Platelet Count Result 298 k/mm3 (150-375); Red Blood Count 3.74 M/mm3 (4.2-5.4); Red Cell Distribution Width 12.5 % (11.5-14.5); White Blood Count 5.2 K/mm3 (4.5-10.0)
[2023-08-29 05:50] LABS: Alanine Aminotransferase 13 U/L (6-35); Albumin Level 3.8 g/dL (3.5-5.1); Alkaline Phosphatase 61 U/L (38-126); Anion Gap 7 mmol/L (4-12); Aspartate Amino Transferase 24 U/L (14-36); Bilirubin,Total 0.4 mg/dL (0.2-1.3); Blood Urea Nitrogen 8 mg/dL (7-17); Calcium 8.4 mg/dL (8.4-10.2); Carbon Dioxide 22 mmol/L (22-30); Chloride 109 mmol/L (98-107); Estimated CRCL calculation 46 ml/min; Estimated Glomerular Filt Rate > 60; Glucose 96 mg/dL (65-110); Potassium 3.5 mmol/L (3.4-5.0); Sodium 138 mmol/L (137-145)
[2023-08-29 06:00] VITALS: BP 135/74; PULSE 65; RESP 20; TEMP 36.6; O2SAT 98
[2023-08-29 08:16] VITALS: PULSE 74
[2023-08-29] MEDS: PANTOPRAZOLE 40 MG TABLET PO ×2 (08:16→20:56)
[2023-08-29] MEDS: carvediloL 12.5 MG TABLET PO ×2 (08:16→20:55)
[2023-08-29] MEDS: ENOXAPARIN 40 MG/0.4 ML SYRINGE SUB-Q (08:17)
[2023-08-29] MEDS: lisinopriL 10 MG TABLET PO (08:17)
--- NOTE | 2023-08-29 13:36 | PM.IMPN ---
Progress Note: A&P Assessment and Plan (1) Sigmoid diverticulitis: Code(s): K57.32 - Diverticulitis of large intestine without perforation or abscess without bleeding Status: Acute Assessment and Plan: Patient developed the left lower quadrant pain one week ago and was started on po antibiotics by her PCP 3 days ago. She notes she has been having difficulty keeping down oral antibiotics due to ongoing nausea/vomiting. CBC without leukocytosis and patient remains afebrile. - CT scan showed acute sigmoid diverticulitis without perforation or abscess. - advance diet as tolerated - Analgesics - Antiemetics - Antibiotics: Rocephin and flagyl started on 08/27/23 (2) Mild dehydration: Code(s): E86.0 - Dehydration Status: Acute Assessment and Plan: Prior to admission patient was having decreased oral intake 2/2 nausea/vomiting. Per H&P patient appeared dehydrated and received IV fluids overnight. - euvolemic on assessment - monitor (3) Hypertension: Qualifiers: Hypertension type: primary hypertension Qualified Code(s): I10 - Essential (primary) hypertension Code(s): I10 - Essential (primary) hypertension Status: Acute Assessment and Plan: Chronic, stable on home medications. - Carvedilol 12.5 mg daily - Lisinopril 10 mg daily (4) Hypothyroidism: Qualifiers: Hypothyroidism type: unspecified Qualified Code(s): E03.9 - Hypothyroidism, unspecified Code(s): E03.9 - Hypothyroidism, unspecified Status: Acute Assessment and Plan: Stable. Continue home medications. - Levothyroxine 125 mg daily - TSH 2.240 (5) Hyperlipidemia: Qualifiers: Hyperlipidemia type: mixed hyperlipidemia Qualified Code(s): E78.2 - Mixed hyperlipidemia Code(s): E78.5 - Hyperlipidemia, unspecified Status: Acute Assessment and Plan: Continue simvastatin 20 mg. (6) Gastroesophageal reflux disease: Code(s): K21.9 - Gastro-esophageal reflux disease without esophagitis Status: Acute Assessment and Plan: Well controlled on home medications. - Omeprazole 20 mg BID Subjective Date/time seen: 08/29/23 13:36 Interval history: Patient states that she is tolerating her diet well. She did have some loose stools this morning and states that there is no longer blood feeling of the bowl but mentioned some very small clots and her actual stool. Her H&H remained stable. She was put on a full liquid diet this will be advanced to a low-fiber diet. If patient tolerates this diet well she can possibly discharge tomorrow. She denies any continuing abdominal pain. Exam Narrative: GENERAL: Comfortable, no acute distress HENMT: moist mucous membranes EYES: EOM intact b/l NECK: no lymphadenopathy RESPIRATORY: clear to auscultation, no increased respiratory effort CARDIO: Regular rate and rhythm GI: soft, nontender, bowel sounds present SKIN/EXTREMITIES: no rashes, no edema, no redness or tenderness NEURO: PROM intact, answers questions appropriately, A&O x4 Objective Data Vital Signs Vital Signs: Vital Signs - 24 hr 08/28/23 13:57 08/28/23 21:05 08/28/23 20:00 Temperature 98.1 F Pulse Rate 76 65 Respiratory Rate 16 Blood Pressure 157/71 H Pulse Oximetry 94 Oxygen Delivery Room Air 08/28/23 22:00 08/29/23 06:00 08/29/23 08:16 Temperature 97.1 F L 97.9 F Pulse Rate 69 65 74 Respiratory Rate 18 20 Blood Pressure 144/78 H 135/74 Pulse Oximetry 96 98 Oxygen Delivery Intake/Output Intake/Output: Intake & Output 08/26/23 08/27/23 08/28/23 08/29/23 23:59 23:59 23:59 23:59 Intake Total 1200 1030 900 Output Total 1200 Balance 1200 1030 -300 Meds/Results Medications: Active Medications Generic Name Dose Route Start Last Admin Trade Name Freq PRN Reason Stop Dose Admin Acetaminophen 650 mg 08/27/23 23:29 08/28/23 06
[2023-08-29 14:00] VITALS: BP 141/76; PULSE 68; RESP 14; TEMP 36.9; O2SAT 95
[2023-08-29 20:55] VITALS: PULSE 70
[2023-08-29] MEDS: SIMVASTATIN 20 MG TABLET PO (20:55)
[2023-08-29] MEDS: ASPIRIN 81 MG ENTERIC TABLET PO (20:56)
[2023-08-29] MEDS: ACETAMINOPHEN 325 MG TABLET 650 MG PO (20:56)
[2023-08-29 22:00] VITALS: BP 130/77; PULSE 75; RESP 20; TEMP 36.4; O2SAT 98
[2023-08-29 22:05] VITALS: O2SAT 98
[2023-08-30] MEDS: metroNIDAZOLE 500 MG/ISO 100ML 500 MG/100 ML BAG 100 MG IVPB (05:14)
[2023-08-30] MEDS: LEVOTHYROXINE SODIUM 75 MCG TABLET PO (05:14)
[2023-08-30] MEDS: ACETAMINOPHEN 325 MG TABLET 650 MG PO (05:16)
[2023-08-30 06:00] VITALS: BP 156/84; PULSE 58; RESP 20; TEMP 36.2; O2SAT 98
[2023-08-30 06:00] LABS: Basophils Percent Auto 0.4 % (0.2-1.2); Eosinophils Absolute Auto 0.2 K/mm3 (0-0.3); Eosinophils Percent Auto 4.7 % (0-4.4); Hematocrit 37.4 % (37.0-47.0); Hemoglobin 12.2 g/dL (12.0-15.0); Lymphocytes Absolute Auto 2.28 K/mm3 (0.9-3.2); Lymphocytes Percent Auto 44.4 % (18.3-44.2); Mean Corpuscular HGB Conc 32.6 g/dl (32-36); Mean Corpuscular Hemoglobin 30.6 pg (26-34); Mean Corpuscular Volume 93.7 fl (80-100); Monocytes Absolute Auto 0.5 K/mm3 (0.1-0.6); Monocytes Percent Auto 9.3 % (2.6-8.5); Neutrophils Absolute Auto 2.1 K/mm3 (1.3-6.7); Neutrophils Percent Auto 41.2 % (45.5-73.1); Platelet Count Result 332 k/mm3 (150-375); Red Blood Count 3.99 M/mm3 (4.2-5.4); Red Cell Distribution Width 12.4 % (11.5-14.5); White Blood Count 5.1 K/mm3 (4.5-10.0)
[2023-08-30 06:09] LABS: Alanine Aminotransferase 14 U/L (6-35); Albumin Level 3.9 g/dL (3.5-5.1); Alkaline Phosphatase 67 U/L (38-126); Anion Gap 7 mmol/L (4-12); Aspartate Amino Transferase 25 U/L (14-36); Bilirubin,Total 0.3 mg/dL (0.2-1.3); Blood Urea Nitrogen 12 mg/dL (7-17); Calcium 8.6 mg/dL (8.4-10.2); Carbon Dioxide 24 mmol/L (22-30); Chloride 107 mmol/L (98-107); Estimated CRCL calculation 45 ml/min; Estimated Glomerular Filt Rate > 60; Glucose 96 mg/dL (65-110); Potassium 3.5 mmol/L (3.4-5.0); Sodium 138 mmol/L (137-145)
[2023-08-30] MEDS: PANTOPRAZOLE 40 MG TABLET PO (08:58)
[2023-08-30] MEDS: lisinopriL 10 MG TABLET PO (08:58)
[2023-08-30 08:59] VITALS: PULSE 67
[2023-08-30] MEDS: carvediloL 12.5 MG TABLET PO (08:59)
[2023-08-30] MEDS: ENOXAPARIN 40 MG/0.4 ML SYRINGE SUB-Q (08:59)
--- NOTE | 2023-08-30 11:51 | PM.DS ---
DS: Admitting Diagnosis Discharge Date 08/30/23 Admitting Diagnosis diverticulitis DS: Discharge Diagnosis Discharge Diagnosis (1) Sigmoid diverticulitis: Code(s): K57.32 - Diverticulitis of large intestine without perforation or abscess without bleeding Status: Acute (2) Mild dehydration: Code(s): E86.0 - Dehydration Status: Acute (3) Hypertension: Qualifiers: Hypertension type: primary hypertension Qualified Code(s): I10 - Essential (primary) hypertension Code(s): I10 - Essential (primary) hypertension Status: Acute (4) Hypothyroidism: Qualifiers: Hypothyroidism type: unspecified Qualified Code(s): E03.9 - Hypothyroidism, unspecified Code(s): E03.9 - Hypothyroidism, unspecified Status: Acute (5) Hyperlipidemia: Qualifiers: Hyperlipidemia type: mixed hyperlipidemia Qualified Code(s): E78.2 - Mixed hyperlipidemia Code(s): E78.5 - Hyperlipidemia, unspecified Status: Acute (6) Gastroesophageal reflux disease: Code(s): K21.9 - Gastro-esophageal reflux disease without esophagitis Status: Acute DS: Summary Hospital Course Hospital Course: this is an 82-year-old female with a past medical history of hypertension, hyperlipidemia, hypothyroidism, GERD and recent diagnosis of diverticulitis of present to the ED due to evaluation of acute abdominal pain. She had been treated for diverticulitis as an outpatient and was started on p.o. antibiotics of Flagyl and Levaquin. Patient's symptoms did not improve with this antibiotic treatment. She had blood in her stool as well as severe nausea. She was also experiencing diarrhea. In the ED she was afebrile on arrival with stable vital signs. Cbc and CMP were unremarkable. Urine was positive for 1+ ketones. CT of the abdomen and pelvis showed acute sigmoid diverticulitis. She was started on Rocephin and Flagyl IV for this. Patient's diet was slowly advanced. Her diarrhea, bloody stools and nausea all improved with antibiotic therapy. She was able to tolerate a low-fiber diet and be transitioned to oral antibiotics. Advised low-fiber diet for 2 weeks then high-fiber diet thereafter. Her labs and vital signs are stable and she is medically cleared for discharge at this time. Time Spent with Patient Time attestation: Total time spent providing and/or coordinating discharge services: Exam Narrative: GENERAL: Comfortable, no acute distress HENMT: moist mucous membranes EYES: EOM intact b/l NECK: no lymphadenopathy RESPIRATORY: clear to auscultation, no increased respiratory effort CARDIO: Regular rate and rhythm GI: soft, nontender, bowel sounds present SKIN/EXTREMITIES: no rashes, no edema, no redness or tenderness NEURO: PROM intact, answers questions appropriately, A&O x4 DS: Data Data Completed and Pending Labs on day of discharge: Labs from last 24 hours 08/30/23 05:25 WBC 5.1 RBC 3.99 L Hgb 12.2 Hct 37.4 MCV 93.7 MCH 30.6 MCHC 32.6 RDW 12.4 Plt Count 332 MPV 10.0 Immature Gran % (Auto) 0.0 Neut % (Auto) 41.2 L Lymph % (Auto) 44.4 H [place] % (Auto) 9.3 H Eos % (Auto) 4.7 H Baso % (Auto) 0.4 Lymph # (Auto) 2.28 [place] # (Auto) 0.5 Eos # (Auto) 0.2 Baso # (Auto) 0.0 Abs Immat Gran (auto) 0.00 Absolute Neuts (auto) 2.1 Absolute Nucleated RBC 0.000 Nucleated RBC % 0.0 Sodium 138 Potassium 3.5 Chloride 107 Carbon Dioxide 24 Anion Gap 7 BUN 12 Creatinine 0.70 Estim Creat Clear Calc 45 Estimated GFR > 60 Glucose 96 Calcium 8.6 Total Bilirubin 0.3 AST 25 ALT 14 Alkaline Phosphatase 67 Total Protein 7.0 Albumin 3.9 Discharge Plan Discharge Consulting providers: Ludivina Hannon Discharging Clinician: Sylwia Peralta Patient Disposition: Home, Self-Care Activity: no preference Diet: low fiber Discharge Instructions: Medication: Augmentin twice daily for 7 more days.
== END 2023-08-30 13:34 | disposition home or self-care (01) ==
LOC: ANHED 10:37 → ANH3MED 12:56
PROVIDERS: Emergency Medicine; Physician Assistant; Student in an Organized Health Care Education/Training Program; Admitting Provider General Practice; Emergency Provider Nurse Practitioner Family; PCP Family Medicine; Visit Provider General Practice
DX: K57.32 Diverticulitis of large intestine without perforation or abscess without bleeding (principal); E86.0 Dehydration; I10 Essential (primary) hypertension; E78.00 Pure hypercholesterolemia, unspecified; D64.9 Anemia, unspecified; F41.9 Anxiety disorder, unspecified; E03.9 Hypothyroidism, unspecified; K21.9 Gastro-esophageal reflux disease without esophagitis; Z87.891 Personal history of nicotine dependence; Z79.82 Long term (current) use of aspirin
CPT/HCPCS: 36415; 74177; 80048; 80053; 81003; 83690; 83735; 84443; 85025; 85027; 96361; 96365; 96366; 96367; 96372; 96375; 96376; 99285; A9270; G0378; J0696; J0744; J1650; J1836; J1885; J2405; J7030; Q9967

== ENCOUNTER 2024-01-04 09:15 | Outpatient (CLI) | payer OTHER, SELFPAY ==
--- NOTE | ~2024-01-04 | MMUS_ITS ---
EXAMINATION: US breast RT limited, MM diagnostic lucia RT w erica HISTORY: Palpable right breast abnormality. TECHNIQUE: Additional 3-D tomosynthesis images of the right breast were performed and synthetic 2-D i mages were generated. CAD analysis was submitted and interpreted. High resolution Limited right breas t ultrasound was performed. COMPARISON: Comparison to multiple prior studies sequentially, with oldest reviewed study dated 03/09. BREAST PARENCHYMAL COMPOSITION: FINDINGS: MAMMOGRAPHIC FINDINGS: There are no new masses, calcifications or architectural distortion in the right breast to suggest ma lignancy. ULTRASOUND: Complete US of all 4 quadrants of the breast/s and retroareolar region was reviewed. Normal heterogen eous echotexture without focal solid or cystic mass. IMPRESSION: 1. No evidence for malignancy in the right breast. 2. Routine yearly screening mammogram and regular clinical breast examination are recommended. BI-RADS Category 1: Negative Reviewed, dictated and finalized at location B. IMPRESSION: 1. No evidence for malignancy in the right breast. 2. Routine yearly screening mammogram and regular clinical breast examination a re recommended. BI-RADS Category 1: Negative
== END 2024-01-04 09:16 | disposition home or self-care (01) ==
PROVIDERS: PCP Family Medicine; Visit Provider Family Medicine
DX: N63.15 Unspecified lump in the right breast, overlapping quadrants (principal)
CPT/HCPCS: 76642; 77061; 77065; G0279

== ENCOUNTER 2024-06-13 12:47 | Outpatient (CLI) | payer OTHER, SELFPAY ==
--- NOTE | ~2024-06-13 | MM_ITS ---
EXAMINATION: MM screening lucia BI w erica HISTORY: Screening TECHNIQUE: Craniocaudal and mediolateral oblique 3-D tomosynthesis images were obtained and synthetic 2-D images were generated. CAD analysis was submitted and interpreted. COMPARISON: 04/13/2023 and dating back to 02/27/2017 BREAST PARENCHYMAL COMPOSITION: There are scattered areas of fibroglandular density. FINDINGS: Microclips within the bilateral breast tissue, consistent with patient's history. Both area s yielded benign results. Punctate calcifications detected bilaterally, vascular in origin and benign in appearance. Stable parenchymal pattern without suspicious microcalcifications, architectural distortion, discrete masses or significant asymmetry. IMPRESSION: 1. No mammographic/tomographic evidence of malignancy. 2. Recommend routine screening mammography in one year. BI-RADS Category 2: Benign finding(s). Reviewed, dictated and finalized at location A. 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
== END 2024-06-13 12:48 | disposition home or self-care (01) ==
PROVIDERS: PCP Family Medicine; Visit Provider Family Medicine
DX: Z12.31 Encounter for screening mammogram for malignant neoplasm of breast (principal)
CPT/HCPCS: 77063; 77067